=== PATIENT | female | born 1985 | race Caucasian/White ===

== ENCOUNTER 2018-08-18 07:28 | Inpatient (IN) ==
[2018-08-18] MEDS ORDERED: LACTATED RINGER'S 1,000 ML IV PRN (08:09)
[2018-08-18] MEDS ORDERED: OXYTOCIN 30 UNITS/500 ML BAG IV PRN (08:09)
[2018-08-18 08:41] LABS: Hematocrit (blood only) 35.3 % (37-47); Hemoglobin 12.3 g/dL (12.0-16.0); Mean Platelet Volume 10.5 fL (7.4-10.4); Platelet Count 176 K/uL (130-400); RDW Coefficient of Variation 13.9 % (11.5-14.5); RDW Standard Deviation 45.3 fL (36.4-46.3); Red Blood Count 3.88 M/uL (4.2-5.4); White Blood Count 9.32 K/uL (4.8-10.8)
[2018-08-18 08:45] LABS: Mean Corpuscular Hgb Conc 34.8 g/dL (32-36)
--- NOTE | 2018-08-18 08:57 | Obstetrical Progress Note ---
Date of Service August 18, 2018 Subjective Admit Note 32 F P0000 at 40.6 weeks admitted for post dates induction. FHT Cat 1. GBS is negative. Cervix is fingertip/thick/-3/vertex/intact/posterior/firm. Will plan for Cervidil for cervical ripening. Physical Exam Vital Signs (Past 24 Hours): Last Vital Signs Temp 36.4 C L 08/18/18 08:00 Pulse 94 H 08/18/18 08:33 Resp 20 08/18/18 08:00 BP 163/89 H 08/18/18 08:33
[2018-08-18] MEDS ORDERED: DINOPROSTONE 10 MG INSERT PV ONE ×2 (09:15→21:52)
--- NOTE | 2018-08-18 09:37 | Obstetrical Progress Note ---
Date of Service August 18, 2018 Physical Exam Vital Signs (Past 24 Hours): Last Vital Signs Temp 36.4 C L 08/18/18 08:00 Pulse 94 H 08/18/18 08:33 Resp 20 08/18/18 08:00 BP 163/89 H 08/18/18 08:33 Physical Exam: Cervidil 10 mg placed vaginally. T Cat 1.
--- NOTE | 2018-08-18 21:55 | Obstetrical Progress Note ---
Date of Service August 18, 2018 Physical Exam Vital Signs (Past 24 Hours): Last Vital Signs Cervidil removed Cervix fingertip/60/-3 FHt Cat 1 Will allow to eat and shower plan another Cervidil Temp 36.6 C 08/18/18 19:05 Pulse 98 H 08/18/18 21:14 Resp 20 08/18/18 19:05 BP 148/97 H 08/18/18 21:14
--- NOTE | 2018-08-18 23:49 | Obstetrical Progress Note ---
Date of Service August 18, 2018 Physical Exam Vital Signs (Past 24 Hours): Last Vital Signs Temp 36.6 C 08/18/18 19:05 Pulse 92 H 08/18/18 23:42 Resp 20 08/18/18 19:05 BP 138/86 08/18/18 23:42 Physical Exam: Cervidil 10 mg placed vaginally. T Cat 1.
--- NOTE | 2018-08-19 09:03 | Progress Note ---
Date of Service August 19, 2018 Pt doing well Met pt and family Induction Day #2 Cervidil #2 placed Physical Exam Vital Signs (Past 24 Hours): Last Vital Signs Temp 36.8 C 08/19/18 07:11 Pulse 104 H 08/19/18 07:10 Resp 20 08/19/18 07:11 BP 149/88 H 08/19/18 07:10
[2018-08-19] MEDS ORDERED: LACTATED RINGER'S 1,000 ML IV PRN (12:25)
[2018-08-19] MEDS ORDERED: OXYTOCIN 30 UNITS/500 ML BAG IV PRN (12:25)
--- NOTE | 2018-08-19 12:28 | Progress Note ---
Date of Service August 19, 2018 Pt doing well induction for prolonged gestation Bedside sono ; VT FHR CAT1 Ctx 3-4mins received 2 doses of Cervidil VE; ft/50/-3 will start pitocin augmentation Physical Exam Vital Signs (Past 24 Hours): Last Vital Signs Temp 36.6 C 08/19/18 10:43 Pulse 96 H 08/19/18 10:46 Resp 18 08/19/18 10:43 BP 155/94 H 08/19/18 10:46
[2018-08-19] MEDS: LACTATED RINGER'S 1,000 ML IV SCH ×5 (13:42→21:28)
[2018-08-19 16:25] LABS: Albumin Level 2.5 gm/dl (3.4-5.0); BUN Creatinine Ratio 18.5 (10-20); Calcium 9.2 mg/dl (8.5-10.1); Creatinine Clr Calc Pharmacy 144.9 ml/min; Est GFR (African American) 134.8; Est GFR (Non-African American) 116.3; Potassium 3.6 mmol/L (3.5-5.1)
[2018-08-19 16:28] LABS: Albumin Globulin Ratio 0.7 (0.9-2); Bilirubin,Total 0.2 mg/dl (0.2-1); Globulin 3.8 gm/dl (2.5-4.0); Total Protein 6.3 gm/dl (6.4-8.2)
[2018-08-20] MEDS: LACTATED RINGER'S 1,000 ML IV SCH (05:59)
[2018-08-20] MEDS ORDERED: miSOPROStol 50 MCG TAB PO ONE ×3 (09:29→22:47)
--- NOTE | 2018-08-20 09:33 | Obstetrical Progress Note ---
Date of Service August 20, 2018 Subjective doing well Will stop Oxytocin and give patient opportunity to shower and ambulate Will continue induction with Cytotec 50 mcg orally Physical Exam Vital Signs (Past 24 Hours): Last Vital Signs Temp 36.8 C 08/20/18 04:53 Pulse 92 H 08/20/18 08:04 Resp 18 08/20/18 06:43 BP 133/89 08/20/18 08:04
[2018-08-20] MEDS ORDERED: miSOPROStol 50 MCG TAB ONE (12:40)
--- NOTE | 2018-08-20 22:44 | Obstetrical Progress Note ---
Date of Service August 20, 2018 Physical Exam Vital Signs (Past 24 Hours): Last Vital Signs Temp 36.6 C 08/20/18 19:21 Pulse 89 08/20/18 20:58 Resp 20 08/20/18 19:21 BP 160/90 H 08/20/18 20:58 Physical Exam: Monson wih 30 ml. saline inserted into cervix. T Cat 1. cytotec every 4 hours. Cervix remains /.
[2018-08-21] MEDS ORDERED: miSOPROStol 50 MCG TAB PO STA (03:36)
[2018-08-21] MEDS ORDERED: BUTORPHANOL TARTRATE 1 MG/ML VIAL IV PRN (03:38)
[2018-08-21] MEDS ORDERED: LACTATED RINGER'S 1,000 ML IV PRN ×2 (10:25→22:54)
--- NOTE | 2018-08-21 10:27 | Obstetrical Progress Note ---
Date of Service August 21, 2018 Physical Exam Vital Signs (Past 24 Hours): Last Vital Signs Temp 36.7 C 08/21/18 07:05 Pulse 98 H 08/21/18 09:54 Resp 20 08/21/18 07:05 BP 132/86 08/21/18 09:54 Genitourinary: OB Exam Abdomen: + vertex, + posterior and + estimated weight (8.5 lbs.) Manual OB Exam: + cervical dilation 1 cm and 2 cm, + cervical effacement 50% and + station high OB Exam Monitor Tracing: + external FHT monitor used and + category I Monson fell out will start Oxytocin to augment contractions
[2018-08-21] MEDS: LACTATED RINGER'S 1,000 ML IV SCH ×3 (10:50→23:01)
[2018-08-21] MEDS: OXYTOCIN 30 UNITS/500 ML BAG IV PRN (10:54)
[2018-08-21] MEDS ORDERED: OXYTOCIN 30 UNITS/500 ML BAG IV PRN (16:01)
[2018-08-21] MEDS ORDERED: Nursing to Pharmacy Communication ONE (16:59)
--- NOTE | 2018-08-21 19:49 | Obstetrical Progress Note ---
Date of Service August 21, 2018 Physical Exam Vital Signs (Past 24 Hours): Last Vital Signs Temp 36.5 C 08/21/18 16:26 Pulse 78 08/21/18 19:17 Resp 20 08/21/18 16:26 BP 165/91 H 08/21/18 19:17 Genitourinary: OB Exam Abdomen: + heart tones and + vertex Manual OB Exam: + cervical dilation 3 cm and 4 cm, + cervical effacement 80%, + station high and + amniotic fluid clear OB Exam Monitor Tracing: + external FHT monitor used, + external uterine monitor used, + category I and + normal FHT variability AROM clear fluid
[2018-08-21] MEDS ORDERED: ACETAMINOPHEN 500 MG TAB PO PRN (20:01)
[2018-08-21] MEDS ORDERED: ACETAMINOPHEN 500 MG TAB ONE (20:24)
[2018-08-21] MEDS ORDERED: BUPIVACAINE 0.25% 30 ML VIAL ONE (21:49)
[2018-08-21] MEDS ORDERED: fentaNYL 2MCG/ML ROPIV 1.25MG/ML 100 ML BAG EPI ONE (21:50)
[2018-08-21] MEDS ORDERED: fentaNYL citrate 100 MCG/2 ML VIAL ONE (21:50)
[2018-08-21] MEDS ORDERED: ePHEDrine sulfate 50 MG/ML AMP ONE (21:50)
--- NOTE | 2018-08-21 22:31 | Anesthesiology Consultation ---
Date of Service August 21, 2018 SpO2 Assessment & Plan (1) Encounter for pre-operative examination: Chart Review Chart Review: Patient NOT seen in Pre Admission Testing and Acceptable Risk for Labor Epidural Consults Requested none ASA ASA2 Proposed Anesthesia Anesthesia Type: Labor Epidural and CSE Risk / Benefits Reviewed With: PT / POA / Parent / Guardian, Accepts Plan and Informed Consent Obtained NPO Date Last Intake of Fluids: 08/21/18 Time Last Intake of Fluids: 22:15 Date Last Intake of Solids: 08/21/18 Time Last Intake of Solids: 08:30 History Height/Weight Height: 5 ft 5 in Weight: 109.769 kg Allergies Allergy/AdvReac Type Severity Reaction Status Date / Time house dust mite Allergy Congested Verified 05/04/18 19:56 Medications Home Medications Medication Instructions Recorded Confirmed Last Taken ferrous sulfate [iron] 325 mg PO DAILY 08/18/18 08/18/18 08/17/18 08:00 folic acid 0.4 mg PO DAILY 08/18/18 08/18/18 08/17/18 08:00 vit-iron fum-folic ac 1 tab PO DAILY 08/18/18 08/18/18 08/17/18 08:00 [ Vitamin] Active Medications Generic Name Dose Route Start Last Admin Trade Name Freq PRN Reason Stop Dose Admin Acetaminophen 500 mg 08/21/18 20:01 08/21/18 20:25 Tylenol PO 09/20/18 20:00 500 mg Q4H PRN Administration Headache or Pain Oxytocin 30 units in 500 mls @ 18 mls/hr 08/21/18 10:25 08/21/18 20:45 Pitocin IV 09/20/18 10:24 1.08 units/hr .Q24H PRN 18 mls/hr Labor Induction/Augmentation Titration Protocol 1.08 UNITS/HR Lactated Ringer's 1,000 mls @ 125 mls/hr 08/21/18 11:15 08/21/18 21:50 Lr IV 09/20/18 11:14 999 mls/hr .Q8H ALCIDES Infusion Past Medical History Medical History Gestational diabetes mellitus (GDM) Borderline diet controlled No known health problems Past Surgical History Surgical History H/O wisdom tooth extraction Past Anesthesia History No Hx of Anesthesia Complications and No Family Hx of Anesthesia Complications History of PONV No Motion Sickness Screening History of Motion Sickness: No Social History Smoking Status: Never smoker Hx Alcohol Use: No Hx Substance Use: No substance use type: does not use Exercise / Class Metabolic Activity II 4-5 Yardwork/Stairs/Walk up hill Review of Systems no chest pain or sob Physical Exam Vital Signs Last Vital Signs Temp 36.6 C 08/21/18 21:12 Pulse 102 H 08/21/18 22:30 Resp 20 08/21/18 21:12 BP 174/105 H 08/21/18 22:11 Pulse Ox 100 08/21/18 22:30 ENMT Mouth: no TMJ abnormality Thyromental Distance: > or= 3.5 Finger Breadths Mallampati Class: II Neck normal visual inspection Respiratory normal respiratory effort Auscultation: lungs clear to auscultation bilaterally Cardiovascular Rate/Rhythm: regular rate and regular rhythm Musculoskeletal Spine: normal cervical ROM Neurologic moves all extremities Psychiatric Orientation: alert and oriented x 3 Testing Laboratory Results 08/18/18 08:20 08/19/18 15:56
[2018-08-21] MEDS ORDERED: DiphenhydrAMINE HCL 50 MG/ML VIAL IV PRN (22:54)
[2018-08-21] MEDS ORDERED: fentaNYL 2MCG/ML ROPIV 1.25MG/ML 100 ML BAG EPI PRN (22:54)
[2018-08-21] MEDS ORDERED: ONDANSETRON INJ 2 MG/ML 2 ML VIAL IV PRN (22:54)
[2018-08-21] MEDS ORDERED: ePHEDrine sulfate 50 MG/ML AMP IV PRN (22:54)
[2018-08-21] MEDS ORDERED: NALOXONE HCL 1 MG in SODIUM CHLORIDE 0.9% 1000ML 1,000 ML IV PRN (22:54)
[2018-08-21] MEDS ORDERED: NALBUPHINE HCL INJ 10 MG/ML AMP IV PRN (22:54)
[2018-08-21] MEDS ORDERED: NALOXONE HCL 0.4 MG/1 ML VIAL/CARP IV PRN (22:54)
[2018-08-22] MEDS ORDERED: Nursing to Pharmacy Communication ONE (03:53)
[2018-08-22] MEDS ORDERED: fentaNYL citrate 100 MCG/2 ML VIAL ONE ×2 (04:27→17:57)
[2018-08-22] MEDS ORDERED: fentaNYL citrate 100 MCG/2 ML VIAL INT SPINAL STA (04:28)
[2018-08-22] MEDS ORDERED: BUPIVACAINE 0.25% 30 ML VIAL ONE ×2 (04:30→17:57)
[2018-08-22] MEDS: fentaNYL 2MCG/ML ROPIV 1.25MG/ML 100 ML BAG EPI PRN ×6 (04:54→19:05)
[2018-08-22] MEDS: LACTATED RINGER'S 1,000 ML IV SCH ×3 (07:01→23:15)
--- NOTE | 2018-08-22 08:42 | Progress Note ---
Date of Service August 22, 2018 pt signed out to me by Dr Crow Met pt and family reviewed care with Nurse AROM FHR; CAT1 Ctx 1-3 Pit; 20 VE by Nurse : 8/100/-1 Afebrile Plan continue with augmentation Physical Exam Vital Signs (Past 24 Hours): Last Vital Signs Temp 37.1 C 08/22/18 08:28 Pulse 99 H 08/22/18 08:37 Resp 20 08/22/18 08:28 BP 144/81 H 08/22/18 08:37 Pulse Ox 98 08/22/18 08:35
[2018-08-22] MEDS ORDERED: OXYTOCIN 30 UNITS/500 ML BAG IV PRN (13:39)
--- NOTE | 2018-08-22 13:43 | Progress Note ---
Date of Service August 22, 2018 Pt doing well Nurse reports she is 9cm ctx have spaced out at 20MU of pt FHR CAT1 Plan Increase Pitocin Physical Exam Vital Signs (Past 24 Hours): Last Vital Signs Temp 37.4 C 08/22/18 11:00 Pulse 131 H 08/22/18 13:40 Resp 18 08/22/18 12:00 BP 156/75 H 08/22/18 13:36 Pulse Ox 99 08/22/18 13:40
[2018-08-22] MEDS: OXYTOCIN 30 UNITS/500 ML BAG IV PRN (17:45)
--- NOTE | 2018-08-22 18:32 | Progress Note ---
Date of Service August 22, 2018 Doing well Afebrile Pt received another bolus of epidural Pain is starting to improved last VE by Nurse showed 9.5cm/0 station X 5 hrs On Pitocin Ctx Will examine pt once pain is much improved Physical Exam Vital Signs (Past 24 Hours): Last Vital Signs Temp 36.8 C 08/22/18 14:36 Pulse 98 H 08/22/18 18:25 Resp 20 08/22/18 14:36 BP 134/68 08/22/18 18:21 Pulse Ox 97 08/22/18 18:25
[2018-08-22] MEDS ORDERED: fentaNYL citrate 100 MCG/2 ML VIAL INJ STA (18:33)
--- NOTE | 2018-08-22 20:19 | Progress Note ---
Date of Service August 22, 2018 Pt fully dilated 0 station starting to push Physical Exam Vital Signs (Past 24 Hours): Last Vital Signs Temp 36.8 C 08/22/18 19:08 Pulse 125 H 08/22/18 20:15 Resp 20 08/22/18 19:08 BP 169/80 H 08/22/18 19:53 Pulse Ox 99 08/22/18 20:15
[2018-08-23] MEDS ORDERED: ePHEDrine sulfate 50 MG/ML AMP ONE (00:13)
[2018-08-23] MEDS ORDERED: fentaNYL citrate 100 MCG/2 ML VIAL ONE (00:22)
[2018-08-23] MEDS ORDERED: PHENYLEPHRINE HCL 10 MG/ML VIAL ONE (00:32)
[2018-08-23] MEDS ORDERED: CARBOPROST TROMETHAMINE 250 MCG/ML AMPUL ONE ×2 (00:36→00:37)
[2018-08-23] MEDS ORDERED: METHYLERGONOVINE MALEATE 0.2 MG/ML AMP ONE (00:38)
[2018-08-23] MEDS ORDERED: fentaNYL citrate 100 MCG/2 ML VIAL IV STA (01:02)
--- NOTE | 2018-08-23 02:04 | Anesthesiology Consultation ---
Date of Service August 23, 2018 Assessment & Plan Chart Review Chart Review: Acceptable Risk for Surgery and Patient seen in Pre Admission Testing Consults Requested none ASA ASA2E Proposed Anesthesia Anesthesia Type: Other (Epidural) Risk / Benefits Reviewed With: PT / POA / Parent / Guardian, Accepts Plan and Informed Consent Obtained NPO Date Last Intake of Fluids: 08/21/18 Time Last Intake of Fluids: 22:15 Date Last Intake of Solids: 08/21/18 Time Last Intake of Solids: 08:30 History Surgery Operation Date: 08/23/18 01:15 Proposed Procedures p Dilatation and Evacuation - Eduard Healy MD Height/Weight Height: 5 ft 5 in Weight: 109.769 kg Allergies Allergy/AdvReac Type Severity Reaction Status Date / Time house dust mite Allergy Congested Verified 05/04/18 19:56 Medications Home Medications Medication Instructions Recorded Confirmed Last Taken ferrous sulfate [iron] 325 mg PO DAILY 08/18/18 08/18/18 08/17/18 08:00 folic acid 0.4 mg PO DAILY 08/18/18 08/18/18 08/17/18 08:00 vit-iron fum-folic ac 1 tab PO DAILY 08/18/18 08/18/18 08/17/18 08:00 [ Vitamin] Active Medications Generic Name Dose Route Start Last Admin Trade Name Doretha PRN Reason Stop Dose Admin Acetaminophen 500 mg 08/21/18 20:01 08/21/18 20:25 Tylenol PO 09/20/18 20:00 500 mg Q4H PRN Administration Headache or Pain Oxytocin 30 units in 500 mls @ 28 mls/hr 08/21/18 10:25 08/22/18 19:44 Pitocin IV 09/20/18 10:24 1.68 units/hr .[id number] PRN 28 mls/hr Labor Induction/Augmentation Titration Protocol 1.68 UNITS/HR Lactated Ringer's 1,000 mls @ 125 mls/hr 08/21/18 11:15 08/22/18 23:15 Lr IV 09/20/18 11:14 125 mls/hr .Q8H ALCIDES Administration Ropivacaine 100 ml 08/22/18 04:41 08/22/18 19:05 Epidural (L&D) EPI 08/23/18 04:40 16 ml PRN PRN Administration Pain R/T Labor Protocol Past Medical History Medical History Gestational diabetes mellitus (GDM) Borderline diet controlled No known health problems Past Family History Family History Other No known health problems Past Surgical History Surgical History H/O wisdom tooth extraction Past Anesthesia History No Hx of Anesthesia Complications History of PONV No Motion Sickness Screening History of Motion Sickness: No Social History Smoking Status: Never smoker Hx Alcohol Use: No Hx Substance Use: No substance use type: does not use Exercise / Class Metabolic Activity II 4-5 Yardwork/Stairs/Walk up hill Physical Exam Vital Signs Last Vital Signs Temp 36.6 C 08/23/18 00:02 Pulse 137 H 08/23/18 01:25 Resp 18 08/23/18 00:02 BP 104/51 L 08/23/18 01:25 Pulse Ox 100 08/23/18 01:25 Constitutional not obese (Gravid uterus) ENMT Mouth: no TMJ abnormality and oral opening not small Thyromental Distance: > or= 3.5 Finger Breadths Mallampati Class: II Neck normal visual inspection; neck extension not limited Respiratory normal respiratory effort Auscultation: lungs clear to auscultation bilaterally Cardiovascular Rate/Rhythm: regular rate and regular rhythm Heart Sounds: no murmur Psychiatric A+Ox3, euthymic affect Orientation: alert and oriented x 3 Testing Laboratory Results 08/18/18 08:20 08/19/18 15:56
[2018-08-23] MEDS ORDERED: ePHEDrine sulfate 50 MG/ML AMP IV PRN (02:18)
[2018-08-23] MEDS ORDERED: ATROPINE SULFATE 0.1 MG/ML 10ML SYR IV PRN (02:18)
[2018-08-23] MEDS ORDERED: ONDANSETRON INJ 2 MG/ML 2 ML VIAL IV PRN (02:18)
[2018-08-23] MEDS ORDERED: fentaNYL citrate 100 MCG/2 ML VIAL IV PRN (02:18)
[2018-08-23] MEDS ORDERED: METHYLERGONOVINE MALEATE 0.2 MG/ML AMP IM ONE (02:36)
[2018-08-23] MEDS ORDERED: miSOPROStol 200 MCG TAB PR ONE (02:36)
[2018-08-23] MEDS ORDERED: ACETAMINOPHEN W/CODEINE #3 1 TAB PO PRN (02:36)
[2018-08-23] MEDS ORDERED: OXYTOCIN 30 UNITS/500 ML BAG IV PRN (02:36)
[2018-08-23] MEDS ORDERED: HYDROCORTISONE ACETATE 25 MG SUPP PR PRN (02:36)
[2018-08-23] MEDS ORDERED: BENZOCAINE 20% AER SPR 82.5 GM CAN EXT PRN (02:36)
[2018-08-23] MEDS ORDERED: DIPHTHERIA/TETANUS/PERTUSSIS 0.5 ML SYR/VIAL IM ONE (02:36)
[2018-08-23] MEDS ORDERED: SUPERCREAM 0.870% 15 GM JAR EXT PRN (02:36)
[2018-08-23] MEDS ORDERED: CARBOPROST TROMETHAMINE 250 MCG/ML AMPUL IM ONE (02:36)
[2018-08-23] MEDS ORDERED: BISACODYL 10 MG SUPP PR PRN (02:36)
[2018-08-23] MEDS ORDERED: OXYCODONE/ACETAMINOPHEN 5mg/325mg TAB PO PRN (02:36)
[2018-08-23] MEDS ORDERED: ACETAMINOPHEN 325 MG TAB PO PRN (02:36)
--- NOTE | 2018-08-23 02:54 | Anesthesia Procedure Note ---
Date of Service August 23, 2018 Anesthesia Post Epidural Note Vital Signs Vital Signs: Temp Pulse Resp BP Pulse Ox 36.6 C 136 H 18 121/98 100 08/23/18 00:02 08/23/18 02:52 08/23/18 00:02 08/23/18 02:48 08/23/18 02:52 Pain Intensity Bilateral Lower Groin: Pain Intensity: 3 Notes Mental Status: alert / awake / arousable and participated in evaluation Nausea / Vomiting: adequately controlled Pain: adequately controlled Airway Patency, RR, SpO2: stable & adequate BP & HR: stable & adequate Hydration State: stable & adequate Neuraxial Anesthesia: was administered and sensory block is resolving Anesthetic Complications: no major complications apparent and Pt Satisfied with anesthetic care Epidural: Removed without complications and With tip intact
[2018-08-23] MEDS ORDERED: OXYTOCIN 20 UNITS in LACTATED RINGER'S 1,000 ML IV SCH (03:00)
--- NOTE | 2018-08-23 03:25 | Anesthesiology Progress Note ---
Date of Service August 23, 2018 Anesthesia Post Procedure Vital Signs Vital Signs: Temp Pulse Resp BP Pulse Ox 08/23/18 03:18 127 H 143/86 H 08/23/18 03:17 138 H 100 08/23/18 03:12 133 H 100 08/23/18 03:07 136 H 100 08/23/18 03:06 146 H 20 139/70 08/23/18 03:05 142 H 194/112 H 08/23/18 03:02 124 H 100 08/23/18 02:57 146 H 99 08/23/18 02:52 136 H 100 08/23/18 02:48 20 121/98 08/23/18 02:47 147 H 99 08/23/18 02:42 139 H 99 08/23/18 02:37 133 H 100 08/23/18 02:33 36.9 C 74 20 134/91 08/23/18 02:32 127 H 99 08/23/18 01:25 137 H 104/51 L 100 08/23/18 01:22 127 H 112/59 L 08/23/18 01:20 124 H 100 08/23/18 01:19 131 H 104/57 L 08/23/18 01:16 127 H 99/54 L 08/23/18 01:15 130 H 100 08/23/18 01:13 130 H 96/51 L 08/23/18 01:10 133 H 105/57 L 100 08/23/18 01:07 125 H 111/65 08/23/18 01:05 127 H 100 08/23/18 01:04 127 H 105/56 L 08/23/18 01:00 123 H 101/57 L 100 08/23/18 00:58 122 H 98/56 L 08/23/18 00:55 126 H 98/53 L 100 08/23/18 00:52 116 H 98/55 L 08/23/18 00:50 126 H 100 08/23/18 00:49 136 H 101/54 L 08/23/18 00:46 125 H 104/51 L 08/23/18 00:45 130 H 100 08/23/18 00:43 125 H 107/59 L 08/23/18 00:40 130 H 112/55 L 100 08/23/18 00:37 125 H 109/55 L 08/23/18 00:35 123 H 99 08/23/18 00:34 126 H 113/56 L 08/23/18 00:30 141 H 100/57 L 99 08/23/18 00:27 123 H 70/39 L 08/23/18 00:25 127 H 100 08/23/18 00:22 136 H 100/52 L 08/23/18 00:20 145 H 66 L 08/23/18 00:19 162 H 113/54 L 08/23/18 00:16 123 H 75/57 L 08/23/18 00:15 122 H 100 08/23/18 00:14 114 H 90/53 L 08/23/18 00:12 113 H 92/54 L 08/23/18 00:10 122 H 92/51 L 100 08/23/18 00:05 116 H 100 08/23/18 00:02 36.6 C 18 08/23/18 00:01 122 H 96/53 L 08/23/18 00:00 113 H 100 08/22/18 23:55 114 H 100 08/22/18 23:46 112 H 109/63 08/22/18 23:31 121 H 111/63 08/22/18 23:16 125 H 113/60 08/22/18 23:01 126 H 121/68 08/22/18 22:46 130 H 129/67 08/22/18 22:21 118 H 133/63 08/22/18 22:06 112 H 128/55 L 08/22/18 21:51 106 H 130/59 L 08/22/18 21:37 117 H 140/63 08/22/18 21:22 113 H 145/76 H 08/22/18 21:06 131 H 143/92 H 08/22/18 21:00 134 H 96 08/22/18 20:58 168 H 90 08/22/18 20:55 126 H 96 08/22/18 20:52 133 H 92 08/22/18 20:51 126 H 144/85 H 08/22/18 20:50 124 H 96 08/22/18 20:45 37.0 C 131 H 20 97 08/22/18 20:41 134 H 86 L 08/22/18 20:40 129 H 97 08/22/18 20:35 134 H 97 08/22/18 20:34 135 H 88 L 08/22/18 20:30 139 H 97 08/22/18 20:27 133 H 87 L 08/22/18 20:25 121 H 99 08/22/18 20:21 125 H 143/83 H 08/22/18 20:20 134 H 99 08/22/18 20:15 125 H 99 08/22/18 20:14 135 H 81 L 08/22/18 20:10 123 H 97 08/22/18 20:08 130 H 92 08/22/18 20:05 128 H 99 08/22/18 20:02 121 H 75 L 08/22/18 20:00 133 H 99 08/22/18 19:55 118 H 100 08/22/18 19:53 116 H 169/80 H 08/22/18 19:51 125 H 88 L 08/22/18 19:50 104 H 100 08/22/18 19:45 110 H 100 08/22/18 19:40 116 H 100 08/22/18 19:36 136 H 160/86 H 08/22/18 19:35 134 H 100 08/22/18 19:32 116 H 83 L 08/22/18 19:30 110 H 99 08/22/18 19:25 117 H 100 08/22/18 19:21 108 H 151/86 H 08/22/18 19:20 108 H 99 08/22/18 19:15 99 H 99 08/22/18 19:13 96 H 146/85 H 08/22/18 19:10 110 H 100 08/22/18 19:08 36.8 C 101 H 20 145/95 H 08/22/18 19:05 97 H 99 08/22/18 19:00 100 H 99 08/22/18 18:55 103 H 100 08/22/18 18:52 100 H 136/93 08/22/18 18:50 109 H 99 08/22/18 18:45 109 H 98 08/22/18 18:40 97 H 98 08/22/18 18:37 94 H 142/79 H 08/22/18 18:35 102 H 99 08/22/18 18:30 100 H 98 08/22/18 18:25 98 H 97 08/22/18 18:21 93 H 134/68 08/22/18 18:20 101 H 97 08/22/18 18:15 96 H 94 08/22/18 18:12 95 H 141/73 H 08/22/18 18:10 98 H 98 08/22/18 18:05 99 H 97 08/22/18 18:00 123 H 99 08/22/18 17:55 115 H 99 08/22/18 17:53 107 H 154/78 H 08/22/18 17:50 113 H 99 08/22/18 17:45 105 H 99 08/22/18 17:40 105 H 99 08/22/18 17:37 111 H 140/92 08/22/18 17:35 112 H 98 08/22/18 17:30 115 H 98 08/22/18 17:25 118 H 98 08/22/18 17:21 117 H 159/87 H 08/22/18 17:20 120 H 98 08/22/18 17:15 115 H 99 08/22/18 17:10 121 H 99 08/22/18 17:06 117 H 170/93 H 08/22/18 17:05 113 H 98 08/22/18 17:00 122 H 96 08/22/18 16:55 123 H 98 08/22/18 16:52 115 H 153/83 H 08/22/18 16:50 120 H 97 08/22/18 16:45 128 H 99 08/22/18 16:40 118 H 99 08/22/18 16:37 130 H 183/98 H 08/22/18 16:35 123 H 98 08/22/18 16:30 120 H 99 08/22/18 16:25 131 H 99 08/22/18 16:23 125 H 163/82 H 08/22/18 16:20 140 H 98 08/22/18 16:15 145 H 98 08/22/18 16:10 124 H 98 08/22/18 16:06 117 H 165/94 H 08/22/18 16:05 116 H 99 08/22/18 16:00 104 H 97 08/22/18 15:55 98 H 96 08/22/18 15:52 96 H 126/74 08/22/18 15:50 93 H 96 08/22/18 15:45 100 H 95 08/22/18 15:40 110 H 97 08/22/18 15:37 96 H 147/72 H 08/22/18 15:35 97 H 96 08/22/18 15:30 95 H 96 08/22/18 15:25 99 H 95 08/22/18 15:21 92 H 122/63 08/22/18 15:20 97 H 95 08/22/18 15:15 99 H 97 08/22/18 15:10 99 H 95 08/22/18 15:07 96 H 121/66 08/22/18 15:05 97 H 97 08/22/18 15:00 94 H 95 08/22/18 14:55 106 H 99 08/22/18 14:53 103 H 151/79 H 08/22/18 14:50 112 H 99 08/22/18 14:45 109 H 98 08/22/18 14:40 103 H 99 08/22/18 14:36 36.8 C 111 H 20 147/73 H 08/22/18 14:35 113 H 99 08/22/18 14:30 113 H 99 08/22/18 14:25 108 H 99 08/22/18 14:22 96 H 144/76 H 08/22/18 14:20 102 H 97 08/22/18 14:15 96 H 96 08/22/18 14:10 110 H 97 08/22/18 14:07 100 H 147/79 H 08/22/18 14:05 104 H 96 08/22/18 14:00 106 H 98 08/22/18 13:55 108 H 98 08/22/18 13:51 110 H 148/72 H 08/22/18 13:50 119 H 100 08/22/18 13:45 127 H 99 08/22/18 13:40 131 H 99 08/22/18 13:36 115 H 156/75 H 08/22/18 13:35 114 H 98 08/22/18 13:30 101 H 98 08/22/18 13:25 103 H 97 08/22/18 13:24 110 H 93 08/22/18 13:21 37.4 C 106 H 20 144/73 H 08/22/18 13:20 111 H 98 08/22/18 13:15 115 H 98 08/22/18 13:10 120 H 97 08/22/18 13:07 123 H 159/81 H 08/22/18 13:05 131 H 99 08/22/18 13:00 105 H 95 08/22/18 12:55 114 H 96 08/22/18 12:52 102 H 130/74 08/22/18 12:50 103 H 95 08/22/18 12:45 107 H 98 08/22/18 12:40 101 H 95 08/22/18 12:36 104 H 151/77 H 08/22/18 12:35 108 H 98 08/22/18 12:30 114 H 99 08/22/18 12:25 104 H 97 08/22/18 12:23 117 H 148/76 H 08/22/18 12:20 112 H 99 08/22/18 12:15 100 H 97 08/22/18 12:10 105 H 97 08/22/18 12:06 98 H 143/70 H 08/22/18 12:05 100 H 96 08/22/18 12:00 100 H 18 97 08/22/18 11:55 101 H 95 08/22/18 11:53 102 H 143/74 H 08/22/18 11:50 101 H 94 08/22/18 11:45 97 H 98 08/22/18 11:40 107 H 98 08/22/18 11:38 110 H 148/82 H 08/22/18 11:35 123 H 100 08/22/18 11:30 37.1 C 116 H 20 100 08/22/18 11:25 116 H 96 08/22/18 11:21 108 H 152/87 H 08/22/18 11:20 107 H 99 08/22/18 11:15 114 H 100 08/22/18 11:10 124 H 100 08/22/18 11:06 114 H 133/88 08/22/18 11:05 120 H 100 08/22/18 11:00 37.4 C 118 H 20 100 08/22/18 10:55 119 H 100 08/22/18 10:52 121 H 151/81 H 08/22/18 10:50 114 H 98 08/22/18 10:45 110 H 97 08/22/18 10:40 117 H 99 08/22/18 10:36 110 H 154/88 H 08/22/18 10:35 108 H 98 08/22/18 10:30 109 H 18 99 08/22/18 10:25 110 H 100 08/22/18 10:22 113 H 155/89 H 08/22/18 10:20 114 H 99 08/22/18 10:15 115 H 100 08/22/18 10:10 118 H 100 08/22/18 10:07 133 H 126/88 08/22/18 10:05 124 H 100 08/22/18 10:00 113 H 20 100 08/22/18 09:55 118 H 100 08/22/18 09:52 102 H 150/78 H 08/22/18 09:50 112 H 93 08/22/18 09:45 131 H 99 08/22/18 09:40 125 H 99 08/22/18 09:36 110 H 158/90 H 08/22/18 09:35 115 H 100 08/22/18 09:30 110 H 100 08/22/18 09:25 111 H 99 08/22/18 09:24 37.4 C 20 08/22/18 09:23 113 H 156/87 H 08/22/18 09:20 108 H 99 08/22/18 09:15 120 H 100 08/22/18 09:10 103 H 100 08/22/18 09:07 107 H 148/83 H 08/22/18 09:05 101 H 99 08/22/18 09:00 113 H 18 98 08/22/18 08:55 100 H 98 08/22/18 08:52 98 H 140/79 08/22/18 08:50 100 H 99 08/22/18 08:45 102 H 96 08/22/18 08:40 108 H 99 08/22/18 08:37 99 H 144/81 H 08/22/18 08:35 102 H 98 08/22/18 08:30 99 H 99 08/22/18 08:28 37.1 C 20 08/22/18 08:25 104 H 99 08/22/18 08:21 117 H 153/87 H 08/22/18 08:20 129 H 99 08/22/18 08:15 119 H 99 08/22/18 08:10 129 H 97 08/22/18 08:06 125 H 155/91 H 08/22/18 08:05 125 H 100 08/22/18 08:00 125 H 18 98 08/22/18 07:55 102 H 97 08/22/18 07:52 109 H 151/89 H 08/22/18 07:50 106 H 97 08/22/18 07:45 107 H 98 08/22/18 07:40 119 H 98 08/22/18 07:35 121 H 98 08/22/18 07:30 108 H 20 97 08/22/18 07:27 37.8 C H 112 H 20 148/89 H 08/22/18 07:25 114 H 99 08/22/18 07:20 112 H 98 08/22/18 07:15 108 H 97 08/22/18 07:12 111 H 141/84 H 08/22/18 07:10 108 H 98 08/22/18 07:05 113 H 20 100 08/22/18 07:00 118 H 99 08/22/18 06:58 111 H 144/86 H 08/22/18 06:55 107 H 97 08/22/18 06:50 121 H 97 08/22/18 06:45 103 H 98 08/22/18 06:43 108 H 152/89 H 08/22/18 06:40 103 H 98 08/22/18 06:35 105 H 98 08/22/18 06:30 116 H 100 08/22/18 06:29 99 H 147/80 H 08/22/18 06:25 104 H 99 08/22/18 06:20 116 H 100 08/22/18 06:15 113 H 100 08/22/18 06:12 121 H 152/86 H 08/22/18 06:10 116 H 100 08/22/18 06:05 105 H 100 08/22/18 06:00 104 H 18 98 08/22/18 05:59 102 H 160/91 H 08/22/18 05:55 108 H 99 08/22/18 05:50 105 H 98 08/22/18 05:45 114 H 96 08/22/18 05:44 104 H 162/92 H 08/22/18 05:40 97 H 98 08/22/18 05:35 111 H 100 08/22/18 05:30 103 H 98 08/22/18 05:28 102 H 144/86 H 08/22/18 05:25 102 H 97 08/22/18 05:20 92 H 98 08/22/18 05:15 92 H 99 08/22/18 05:12 94 H 147/87 H 08/22/18 05:10 37.2 C 122 H 18 100 08/22/18 05:05 98 H 98 08/22/18 05:00 99 H 20 99 08/22/18 04:57 105 H 149/87 H 08/22/18 04:55 99 H 137/85 99 08/22/18 04:53 88 137/76 08/22/18 04:51 94 H 136/79 08/22/18 04:50 88 95 08/22/18 04:49 88 148/82 H 08/22/18 04:47 92 H 132/79 08/22/18 04:45 92 H 146/85 H 99 08/22/18 04:43 90 140/82 08/22/18 04:41 96 H 145/82 H 08/22/18 04:40 96 H 99 08/22/18 04:39 101 H 149/80 H 08/22/18 04:37 97 H 148/82 H 08/22/18 04:35 104 H 99 08/22/18 04:34 107 H 156/91 H 08/22/18 04:30 95 H 97 08/22/18 04:25 95 H 99 08/22/18 04:20 106 H 97 08/22/18 04:18 114 H 142/86 H 08/22/18 04:15 99 H 97 08/22/18 04:10 122 H 100 08/22/18 04:05 115 H 97 08/22/18 04:03 91 H 144/88 H 08/22/18 04:00 90 96 08/22/18 03:55 92 H 98 08/22/18 03:52 37.5 C 08/22/18 03:50 97 H 168/94 H 98 08/22/18 03:45 114 H 98 08/22/18 03:40 94 H 97 08/22/18 03:35 115 H 98 08/22/18 03:33 96 H 166/95 H 08/22/18 03:30 98 H 99 08/22/18 03:25 91 H 18 99 Pain Intensity Bilateral Lower Groin: Pain Intensity: 3 Notes Mental Status: alert / awake / arousable and participated in evaluation Nausea / Vomiting: adequately controlled Pain: adequately controlled Airway Patency, RR, SpO2: stable & adequate BP & HR: stable & adequate Hydration State: stable & adequate Neuraxial Anesthesia: was administered and sensory block is resolving Anesthetic Complications: no major complications apparent
[2018-08-23] MEDS ORDERED: miSOPROStol 200 MCG TAB ONE (05:57)
[2018-08-23 07:33] LABS: Hematocrit (blood only) 21.6 % (37-47); Hemoglobin 7.8 g/dL (12.0-16.0); Mean Corpuscular Volume 88.5 fL (80-100); Platelet Count 137 K/uL (130-400); RDW Coefficient of Variation 13.8 % (11.5-14.5); RDW Standard Deviation 44.8 fL (36.4-46.3); Red Blood Count 2.44 M/uL (4.2-5.4); White Blood Count 15.81 K/uL (4.8-10.8)
[2018-08-23 07:44] LABS: Mean Corpuscular Hgb Conc 36.1 g/dL (32-36)
[2018-08-23 07:52] LABS: Albumin Level 1.8 gm/dl (3.4-5.0); BUN Creatinine Ratio 10.7 (10-20); Calcium 7.2 mg/dl (8.5-10.1); Creatinine Clr Calc Pharmacy 75.1 ml/min; Est GFR (African American) 60.9; Est GFR (Non-African American) 52.6; Potassium 3.4 mmol/L (3.5-5.1)
[2018-08-23 07:55] LABS: Albumin Globulin Ratio 0.6 (0.9-2); Bilirubin,Total 0.2 mg/dl (0.2-1); Globulin 2.9 gm/dl (2.5-4.0); Total Protein 4.7 gm/dl (6.4-8.2)
--- NOTE | 2018-08-23 08:04 | Delivery Summary ---
DATE OF OPERATION: 08/22/2018 The patient delivered a live infant in left occiput anterior presentation. There was no nuchal cord. was delivered and placed on mother's abdomen. Cord was clamped and cut. Infant's weight and Apgars in the pediatric record. Cord blood was obtained. Placenta, however, could not be spontaneously delivered. An attempt to manually remove the placenta was unsuccessful. The patient was very uncomfortable. Decision was therefore made to take the patient to the operating room. Details of that procedure is in the surgical record. Inspection of the perineum showed a second-degree midline laceration. Estimated blood loss is 500 mL. I attest to the content of the Intraoperative Record and any orders documented therein. Any exceptions are noted below. MTDD
--- NOTE | 2018-08-23 08:04 | Operative Report ---
DATE OF OPERATION: 08/23/2018 INDICATION FOR PROCEDURE: This is a 32-year-old who had a vaginal delivery. Placenta was retained. The patient is undergoing examination under anesthesia a manual removal of placenta in the operating room. PREOPERATIVE DIAGNOSES: 1. Vaginal delivery. 2. Retained placenta. POSTOPERATIVE DIAGNOSES: 1. Vaginal delivery. 2. Retained placenta. PROCEDURES: 1. Examination under anesthesia. 2. Manual removal of placenta. 3. Dilation and evacuation of retained products of conception. 4. Repair of a second-degree vaginal laceration . SURGEON: Dr. Healy. BOX ORDER PERSON: Dr. Hernandez. COMPLICATIONS: None. DRAINS: Monson catheter. FINDINGS: Placenta was removed manually under ultrasound guidance. COMPLICATIONS: None. DRAINS: None. Pathology retained placenta. ESTIMATED BLOOD LOSS: 200 mL. IV FLUIDS: 500 mL. URINE OUTPUT: 1000 mL clear urine at the end of the procedure. DESCRIPTION OF PROCEDURE: The patient was taken to the operating room where she was prepped and draped in normal sterile fashion in dorsal lithotomy position. Monson catheter was placed into the bladder. A weighted speculum was placed in the vagina. Anterior cervix was grabbed with a ring forceps. Suction curette was introduced in the uterine cavity under ultrasound guidance. Small amounts of placenta is manually removed. Manual removal of placenta was performed. Ultrasound after 1 hour removal of placenta showed normal placental tissue in the uterus cavity. Inspection of the cervix shows good hemostasis. The second-degree laceration is repaired with 2-0 Vicryl in layers. Rectal exam post-repair showed good sphincter tone. All instruments were removed from the vagina and accounted for x2. The patient is doing well in recovery. I attest to the content of the Intraoperative Record and any orders documented therein. Any exception s are noted below.
[2018-08-23 08:09] LABS: Basophils # (auto) 0.01 K/uL (0-0.2); Basophils % (auto) 0.1 %; Eosinophils # (auto) 0.02 K/uL (0-0.5); Eosinophils % (auto) 0.1 %; Immature Granulocytes % (auto) 0.6 %; Lymphocytes # (auto) 2.48 K/uL (1.2-3.4); Lymphocytes % (auto) 15.7 %; Monocytes # (auto) 0.93 K/uL (0.11-0.59); Monocytes % (auto) 5.9 %; Neutrophils # (auto) 12.27 K/uL (1.4-6.5); Neutrophils % (auto) 77.6 %
[2018-08-23] MEDS ORDERED: FERROUS SULFATE 325 MG TAB PO SCH (09:00)
[2018-08-23] MEDS: PRENATAL VITAMIN 1 TAB PO SCH (10:33)
[2018-08-23] MEDS: DOCUSATE SODIUM 100 MG CAP PO SCH ×2 (10:34→20:23)
--- NOTE | 2018-08-23 11:01 | Obstetrical Progress Note ---
Date of Service August 23, 2018 Assessment & Plan (1) normal course: PPd #1 D&E for manual removal of placenta anemia hGB; 7.8 with tachycardia discussed transfusion with pt Plan repeat hemoglobin at 13;00 and if still low, Pt will then consider transfusion Subjective Ambulation: ambulating normally Voiding: no voiding problems Passing Gas:: Yes Diet Tolerance:: regular diet Lochia:: Small Feeding Type:: breast feeding Review of Systems All systems reviewed & are unremarkable except as noted in HPI & below Physical Exam Vital Signs (Past 24 Hours) Last Vital Signs Temp 37.2 C 08/23/18 07:15 Pulse 134 H 08/23/18 09:43 Resp 18 08/23/18 07:15 BP 128/69 08/23/18 09:43 Pulse Ox 98 08/23/18 09:42 Constitutional WD/WN, vitals as above well developed and well nourished Eyes PERRL, conjunctivae normal, anicteric sclerae Neck trachea midline, no thyromegaly Respiratory normal respiratory effort, lungs clear to auscultation Auscultation: no crackles, no rales and no wheezes Cardiovascular RRR, no murmur, no edema Gastrointestinal (Abdomen) normal bowel sounds, soft, nontender, no hepatosplenomegaly Uterus is below umbilicus Musculoskeletal no cyanosis or clubbing, extremities motor strength 5/5 Skin no rashes, warm and dry Neurologic patellar DTR's 2+ bilat, sensation intact Psychiatric A+Ox3, euthymic affect Genitourinary normal external appearance
[2018-08-23] MEDS: LACTATED RINGER'S 1,000 ML IV SCH ×2 (11:30→19:22)
[2018-08-23 13:26] LABS: Hemoglobin 7.2 g/dL (12.0-16.0)
--- NOTE | 2018-08-23 14:02 | Obstetrical Progress Note ---
Date of Service August 23, 2018 Subjective Patient is seen and examined. She feels well, no complaints. She had repeat H&H this afternoon Hb 7.1 Htc: 20 Discussed the results and her HR being tachycardic since this morning, recommended blood transfusion. Discussed the risks of blood transfusion in details with her and her She refused blood transfusion. Given her the consent form to review She states she ambulated and took shower this morning without dizziness Voiding without difficulty Tolerating regular diet with out N&V Bleeding is minimal No fever/ chills/ CP/ SOB/palpitations/ N&V/ Leg pain Breast feeding without problems Vital Signs Temp Pulse Pulse Resp BP BP Pulse Ox 08/23/18 13:50 37.4 C 107 H 28 H 126/79 99 08/23/18 12:32 37.1 C 115 H 18 131/90 98 08/23/18 10:10 37.2 C 123 H 18 126/78 98 08/23/18 09:43 134 H 128/69 08/23/18 09:42 134 H 98 08/23/18 09:37 138 H 98 08/23/18 09:32 129 H 98 08/23/18 09:27 138 H 98 08/23/18 09:22 134 H 98 08/23/18 09:17 136 H 98 08/23/18 09:12 129 H 97 08/23/18 09:07 142 H 97 08/23/18 09:02 144 H 97 08/23/18 08:57 142 H 98 08/23/18 08:52 136 H 97 08/23/18 08:47 139 H 97 08/23/18 08:42 150 H 99 08/23/18 08:37 126 H 97 08/23/18 08:32 119 H 95 08/23/18 08:30 127 H 93 08/23/18 08:27 131 H 98 08/23/18 08:22 123 H 93 08/23/18 08:17 124 H 96 08/23/18 08:12 121 H 96 08/23/18 08:07 118 H 95 08/23/18 08:06 121 H 93 08/23/18 08:02 123 H 95 08/23/18 08:00 122 H 92 08/23/18 07:57 119 H 95 08/23/18 07:55 120 H 94 08/23/18 07:52 114 H 95 08/23/18 07:47 116 H 96 08/23/18 07:46 114 H 94 08/23/18 07:42 112 H 96 08/23/18 07:37 119 H 99 08/23/18 07:36 122 H 130/75 08/23/18 07:32 128 H 100 08/23/18 07:27 126 H 99 08/23/18 07:22 135 H 97 08/23/18 07:18 120 H 94 08/23/18 07:17 118 H 96 08/23/18 07:15 37.2 C 122 H 18 130/75 99 08/23/18 07:13 117 H 94 08/23/18 07:12 119 H 95 08/23/18 07:07 121 H 96 08/23/18 07:05 121 H 94 08/23/18 07:02 118 H 96 08/23/18 06:57 117 H 96 08/23/18 06:52 115 H 96 08/23/18 06:47 115 H 96 08/23/18 06:42 110 H 97 08/23/18 06:37 109 H 99 08/23/18 06:32 122 H 99 08/23/18 06:27 111 H 98 08/23/18 06:22 118 H 99 08/23/18 06:17 125 H 99 08/23/18 06:12 123 H 98 08/23/18 06:07 134 H 98 08/23/18 06:02 128 H 98 08/23/18 05:57 119 H 98 08/23/18 05:52 140 H 98 08/23/18 05:47 138 H 97 08/23/18 05:42 135 H 97 08/23/18 05:37 134 H 97 08/23/18 05:34 122 H 94 08/23/18 05:32 123 H 96 08/23/18 05:29 122 H 94 08/23/18 05:27 120 H 95 08/23/18 05:23 118 H 94 08/23/18 05:22 119 H 96 08/23/18 05:17 115 H 95 08/23/18 05:12 124 H 95 08/23/18 05:08 121 H 94 08/23/18 05:07 119 H 95 08/23/18 05:03 116 H 94 08/23/18 05:02 119 H 95 08/23/18 04:58 119 H 94 08/23/18 04:57 116 H 94 08/23/18 04:52 114 H 94 08/23/18 04:47 124 H 96 08/23/18 04:42 124 H 98 08/23/18 04:37 120 H 98 08/23/18 04:33 37.5 C 122 H 18 144/82 H 08/23/18 04:32 120 H 96 08/23/18 04:27 127 H 97 08/23/18 04:22 124 H 98 08/23/18 04:19 146 H 132/86 08/23/18 04:17 139 H 99 08/23/18 04:12 127 H 100 08/23/18 04:07 120 H 98 08/23/18 04:03 121 H 18 145/82 H 08/23/18 04:02 111 H 94 08/23/18 04:01 116 H 91 08/23/18 03:57 124 H 94 08/23/18 03:52 122 H 100 08/23/18 03:48 122 H 162/91 H 08/23/18 03:47 122 H 99 08/23/18 03:42 126 H 99 08/23/18 03:37 131 H 100 08/23/18 03:34 129 H 18 145/97 H 08/23/18 03:32 129 H 100 08/23/18 03:27 127 H 100 08/23/18 03:22 125 H 98 08/23/18 03:18 127 H 20 143/86 H 08/23/18 03:17 138 H 100 08/23/18 03:12 133 H 100 08/23/18 03:07 136 H 100 08/23/18 03:06 146 H 20 139/70 08/23/18 03:05 142 H 194/112 H 08/23/18 03:02 124 H 100 08/23/18 02:57 146 H 99 08/23/18 02:52 136 H 100 08/23/18 02:48 20 121/98 08/23/18 02:47 147 H 99 08/23/18 02:42 139 H 99 08/23/18 02:37 133 H 100 08/23/18 02:33 36.9 C 74 20 134/91 08/23/18 02:32 127 H 99 We did another set of vitals now BP 129/79 Pulse ox 100%, pulse at 106-107 PE: General: Alert, orientedx3, NAD, seems pale, tired ( not lseeping for the last 4 days ) CVS S1S2 RR, tachycardic Lungs; CTAB Abd: soft, NT, fundus firm, below Umbilicus Perineum intact, Lochia rubra minimal Ext; NT, no edema AP: 32 yo s/p , Manual removal of placenta in OR, ppd# 0 Anemic with Hb of 7.1, Htc: 20 VSS except tachycardia, got better since this morning, now low 100's, Afebrile doing well clincally Recommended blood transfusion but she declined She likes to iron therapy and repeat in am Recommended to report dizziness/ light headedness this afternoon Continue routine care, monitor closely All questions were answered Physical Exam Vital Signs (Past 24 Hours): Last Vital Signs Temp 37.1 C 08/23/18 12:32 Pulse 115 H 08/23/18 12:32 Resp 18 08/23/18 12:32 BP 131/90 08/23/18 12:32 Pulse Ox 98 08/23/18 12:32
--- NOTE | 2018-08-23 14:47 | Anesthesiology Progress Note ---
Date of Service August 23, 2018 Anesthesia Post Procedure Vital Signs Vital Signs: Temp Pulse Pulse Resp BP BP Pulse Ox 08/23/18 13:50 99.3 F 107 H 28 H 126/79 99 08/23/18 12:32 98.8 F 115 H 18 131/90 98 08/23/18 10:10 99.0 F 123 H 18 126/78 98 08/23/18 09:43 134 H 128/69 08/23/18 09:42 134 H 98 08/23/18 09:37 138 H 98 08/23/18 09:32 129 H 98 08/23/18 09:27 138 H 98 08/23/18 09:22 134 H 98 08/23/18 09:17 136 H 98 08/23/18 09:12 129 H 97 08/23/18 09:07 142 H 97 08/23/18 09:02 144 H 97 08/23/18 08:57 142 H 98 08/23/18 08:52 136 H 97 08/23/18 08:47 139 H 97 08/23/18 08:42 150 H 99 08/23/18 08:37 126 H 97 08/23/18 08:32 119 H 95 08/23/18 08:30 127 H 93 08/23/18 08:27 131 H 98 08/23/18 08:22 123 H 93 08/23/18 08:17 124 H 96 08/23/18 08:12 121 H 96 08/23/18 08:07 118 H 95 08/23/18 08:06 121 H 93 08/23/18 08:02 123 H 95 08/23/18 08:00 122 H 92 08/23/18 07:57 119 H 95 08/23/18 07:55 120 H 94 08/23/18 07:52 114 H 95 08/23/18 07:47 116 H 96 08/23/18 07:46 114 H 94 08/23/18 07:42 112 H 96 08/23/18 07:37 119 H 99 08/23/18 07:36 122 H 130/75 08/23/18 07:32 128 H 100 08/23/18 07:27 126 H 99 08/23/18 07:22 135 H 97 08/23/18 07:18 120 H 94 08/23/18 07:17 118 H 96 08/23/18 07:15 99.0 F 122 H 18 130/75 99 08/23/18 07:13 117 H 94 08/23/18 07:12 119 H 95 08/23/18 07:07 121 H 96 08/23/18 07:05 121 H 94 08/23/18 07:02 118 H 96 08/23/18 06:57 117 H 96 08/23/18 06:52 115 H 96 08/23/18 06:47 115 H 96 08/23/18 06:42 110 H 97 08/23/18 06:37 109 H 99 08/23/18 06:32 122 H 99 08/23/18 06:27 111 H 98 08/23/18 06:22 118 H 99 08/23/18 06:17 125 H 99 08/23/18 06:12 123 H 98 08/23/18 06:07 134 H 98 08/23/18 06:02 128 H 98 08/23/18 05:57 119 H 98 08/23/18 05:52 140 H 98 08/23/18 05:47 138 H 97 08/23/18 05:42 135 H 97 08/23/18 05:37 134 H 97 08/23/18 05:34 122 H 94 08/23/18 05:32 123 H 96 08/23/18 05:29 122 H 94 08/23/18 05:27 120 H 95 08/23/18 05:23 118 H 94 08/23/18 05:22 119 H 96 08/23/18 05:17 115 H 95 08/23/18 05:12 124 H 95 08/23/18 05:08 121 H 94 08/23/18 05:07 119 H 95 08/23/18 05:03 116 H 94 08/23/18 05:02 119 H 95 08/23/18 04:58 119 H 94 08/23/18 04:57 116 H 94 08/23/18 04:52 114 H 94 08/23/18 04:47 124 H 96 08/23/18 04:42 124 H 98 08/23/18 04:37 120 H 98 08/23/18 04:33 99.5 F 122 H 18 144/82 H 08/23/18 04:32 120 H 96 08/23/18 04:27 127 H 97 08/23/18 04:22 124 H 98 08/23/18 04:19 146 H 132/86 08/23/18 04:17 139 H 99 08/23/18 04:12 127 H 100 08/23/18 04:07 120 H 98 08/23/18 04:03 121 H 18 145/82 H 08/23/18 04:02 111 H 94 08/23/18 04:01 116 H 91 08/23/18 03:57 124 H 94 08/23/18 03:52 122 H 100 08/23/18 03:48 122 H 162/91 H 08/23/18 03:47 122 H 99 08/23/18 03:42 126 H 99 08/23/18 03:37 131 H 100 08/23/18 03:34 129 H 18 145/97 H 08/23/18 03:32 129 H 100 08/23/18 03:27 127 H 100 08/23/18 03:22 125 H 98 08/23/18 03:18 127 H 20 143/86 H 08/23/18 03:17 138 H 100 08/23/18 03:12 133 H 100 08/23/18 03:07 136 H 100 08/23/18 03:06 146 H 20 139/70 08/23/18 03:05 142 H 194/112 H 08/23/18 03:02 124 H 100 08/23/18 02:57 146 H 99 08/23/18 02:52 136 H 100 08/23/18 02:48 20 121/98 08/23/18 02:47 147 H 99 08/23/18 02:42 139 H 99 08/23/18 02:37 133 H 100 08/23/18 02:33 98.4 F 74 20 134/91 08/23/18 02:32 127 H 99 08/23/18 01:25 137 H 104/51 L 100 08/23/18 01:22 127 H 112/59 L 08/23/18 01:20 124 H 100 08/23/18 01:19 131 H 104/57 L 08/23/18 01:16 127 H 99/54 L 08/23/18 01:15 130 H 100 08/23/18 01:13 130 H 96/51 L 08/23/18 01:10 133 H 105/57 L 100 08/23/18 01:07 125 H 111/65 08/23/18 01:05 127 H 100 08/23/18 01:04 127 H 105/56 L 08/23/18 01:00 123 H 101/57 L 100 08/23/18 00:58 122 H 98/56 L 08/23/18 00:55 126 H 98/53 L 100 08/23/18 00:52 116 H 98/55 L 08/23/18 00:50 126 H 100 08/23/18 00:49 136 H 101/54 L 08/23/18 00:46 125 H 104/51 L 08/23/18 00:45 130 H 100 08/23/18 00:43 125 H 107/59 L 08/23/18 00:40 130 H 112/55 L 100 08/23/18 00:37 125 H 109/55 L 08/23/18 00:35 123 H 99 08/23/18 00:34 126 H 113/56 L 08/23/18 00:30 141 H 100/57 L 99 08/23/18 00:27 123 H 70/39 L 08/23/18 00:25 127 H 100 08/23/18 00:22 136 H 100/52 L 08/23/18 00:20 145 H 66 L 08/23/18 00:19 162 H 113/54 L 08/23/18 00:16 123 H 75/57 L 08/23/18 00:15 122 H 100 08/23/18 00:14 114 H 90/53 L 08/23/18 00:12 113 H 92/54 L 08/23/18 00:10 122 H 92/51 L 100 08/23/18 00:05 116 H 100 08/23/18 00:02 97.9 F 18 08/23/18 00:01 122 H 96/53 L 08/23/18 00:00 113 H 100 08/22/18 23:55 114 H 100 08/22/18 23:46 112 H 109/63 08/22/18 23:31 121 H 111/63 08/22/18 23:16 125 H 113/60 08/22/18 23:01 126 H 121/68 08/22/18 22:46 130 H 129/67 08/22/18 22:21 118 H 133/63 08/22/18 22:06 112 H 128/55 L 08/22/18 21:51 106 H 130/59 L 08/22/18 21:37 117 H 140/63 08/22/18 21:22 113 H 145/76 H 08/22/18 21:06 131 H 143/92 H 08/22/18 21:00 134 H 96 08/22/18 20:58 168 H 90 08/22/18 20:55 126 H 96 08/22/18 20:52 133 H 92 08/22/18 20:51 126 H 144/85 H 08/22/18 20:50 124 H 96 08/22/18 20:45 98.6 F 131 H 20 97 08/22/18 20:41 134 H 86 L 08/22/18 20:40 129 H 97 08/22/18 20:35 134 H 97 08/22/18 20:34 135 H 88 L 08/22/18 20:30 139 H 97 08/22/18 20:27 133 H 87 L 08/22/18 20:25 121 H 99 08/22/18 20:21 125 H 143/83 H 08/22/18 20:20 134 H 99 08/22/18 20:15 125 H 99 08/22/18 20:14 135 H 81 L 08/22/18 20:10 123 H 97 08/22/18 20:08 130 H 92 08/22/18 20:05 128 H 99 08/22/18 20:02 121 H 75 L 08/22/18 20:00 133 H 99 08/22/18 19:55 118 H 100 08/22/18 19:53 116 H 169/80 H 08/22/18 19:51 125 H 88 L 08/22/18 19:50 104 H 100 08/22/18 19:45 110 H 100 08/22/18 19:40 116 H 100 08/22/18 19:36 136 H 160/86 H 08/22/18 19:35 134 H 100 08/22/18 19:32 116 H 83 L 08/22/18 19:30 110 H 99 08/22/18 19:25 117 H 100 08/22/18 19:21 108 H 151/86 H 08/22/18 19:20 108 H 99 08/22/18 19:15 99 H 99 08/22/18 19:13 96 H 146/85 H 08/22/18 19:10 110 H 100 08/22/18 19:08 98.2 F 101 H 20 145/95 H 08/22/18 19:05 97 H 99 08/22/18 19:00 100 H 99 08/22/18 18:55 103 H 100 08/22/18 18:52 100 H 136/93 08/22/18 18:50 109 H 99 08/22/18 18:45 109 H 98 08/22/18 18:40 97 H 98 08/22/18 18:37 94 H 142/79 H 08/22/18 18:35 102 H 99 08/22/18 18:30 100 H 98 08/22/18 18:25 98 H 97 08/22/18 18:21 93 H 134/68 08/22/18 18:20 101 H 97 08/22/18 18:15 96 H 94 08/22/18 18:12 95 H 141/73 H 08/22/18 18:10 98 H 98 08/22/18 18:05 99 H 97 08/22/18 18:00 123 H 99 08/22/18 17:55 115 H 99 08/22/18 17:53 107 H 154/78 H 08/22/18 17:50 113 H 99 08/22/18 17:45 105 H 99 08/22/18 17:40 105 H 99 08/22/18 17:37 111 H 140/92 08/22/18 17:35 112 H 98 08/22/18 17:30 115 H 98 08/22/18 17:25 118 H 98 08/22/18 17:21 117 H 159/87 H 08/22/18 17:20 120 H 98 08/22/18 17:15 115 H 99 08/22/18 17:10 121 H 99 08/22/18 17:06 117 H 170/93 H 08/22/18 17:05 113 H 98 08/22/18 17:00 122 H 96 08/22/18 16:55 123 H 98 08/22/18 16:52 115 H 153/83 H 08/22/18 16:50 120 H 97 08/22/18 16:45 128 H 99 08/22/18 16:40 118 H 99 08/22/18 16:37 130 H 183/98 H 08/22/18 16:35 123 H 98 08/22/18 16:30 120 H 99 08/22/18 16:25 131 H 99 08/22/18 16:23 125 H 163/82 H 08/22/18 16:20 140 H 98 08/22/18 16:15 145 H 98 08/22/18 16:10 124 H 98 08/22/18 16:06 117 H 165/94 H 08/22/18 16:05 116 H 99 08/22/18 16:00 104 H 97 08/22/18 15:55 98 H 96 08/22/18 15:52 96 H 126/74 08/22/18 15:50 93 H 96 08/22/18 15:45 100 H 95 08/22/18 15:40 110 H 97 08/22/18 15:37 96 H 147/72 H 08/22/18 15:35 97 H 96 08/22/18 15:30 95 H 96 08/22/18 15:25 99 H 95 08/22/18 15:21 92 H 122/63 08/22/18 15:20 97 H 95 08/22/18 15:15 99 H 97 08/22/18 15:10 99 H 95 08/22/18 15:07 96 H 121/66 08/22/18 15:05 97 H 97 08/22/18 15:00 94 H 95 08/22/18 14:55 106 H 99 08/22/18 14:53 103 H 151/79 H 08/22/18 14:50 112 H 99 Pain Intensity Bilateral Lower Groin: Pain Intensity: 1 Notes Mental Status: alert / awake / arousable and participated in evaluation Nausea / Vomiting: adequately controlled Pain: adequately controlled Airway Patency, RR, SpO2: stable & adequate BP & HR: stable & adequate Hydration State: stable & adequate Neuraxial Anesthesia: was administered and sensory block resolved Anesthetic Complications: no major complications apparent and Pt Satisfied with anesthetic care
--- NOTE | 2018-08-23 14:59 | XRay Report ---
[facility] CLINICAL HISTORY: missing gauze pad after vaginal delivery COMPARISON STUDY: None. FINDINGS: No unexpected radiopaque foreign bodies are identified within the lower abdomen or the pelv is. A density within the lower abdomen and pelvis represents an enlarged uterus which is expected. IMPRESSION: No unexpected radiopaque foreign bodies. Electronically signed by: Uche Castillo M.D. 08/23/2018 2:58 PM
[2018-08-23] MEDS: IBUPROFEN 600 MG TAB PO PRN ×2 (16:11→20:23)
[2018-08-23] MEDS: FERROUS SULFATE 325 MG TAB PO SCH (17:03)
[2018-08-24] MEDS: IBUPROFEN 600 MG TAB PO PRN ×2 (03:53→14:30)
[2018-08-24 07:36] LABS: Hematocrit (blood only) 17.5 % (37-47); Hemoglobin 6.2 g/dL (12.0-16.0); Mean Corpuscular Hgb Conc 35.4 g/dL (32-36); Mean Corpuscular Volume 89.3 fL (80-100); Mean Platelet Volume 9.9 fL (7.4-10.4); Platelet Count 123 K/uL (130-400); RDW Coefficient of Variation 13.9 % (11.5-14.5); Red Blood Count 1.96 M/uL (4.2-5.4); White Blood Count 15.09 K/uL (4.8-10.8)
[2018-08-24] MEDS ORDERED: SODIUM CHLORIDE 0.9% 250 ML IV PRN ×3 (07:47→07:50)
--- NOTE | 2018-08-24 08:12 | Obstetrical Progress Note ---
Date of Service August 24, 2018 Subjective Patient is seen Reviewed lab results with her Hb of 6 She agreed for blood transfusion Signed informed consent All questions were answered Physical Exam Vital Signs (Past 24 Hours): Last Vital Signs Temp 36.8 C 08/24/18 03:25 Pulse 85 08/24/18 03:25 Resp 18 08/24/18 03:25 BP 127/58 L 08/24/18 03:25 Pulse Ox 98 08/24/18 03:25
[2018-08-24] MEDS: DOCUSATE SODIUM 100 MG CAP PO SCH ×2 (09:48→20:34)
[2018-08-24] MEDS: PRENATAL VITAMIN 1 TAB PO SCH (09:48)
[2018-08-24] MEDS: FERROUS SULFATE 325 MG TAB PO SCH ×2 (09:49→17:02)
--- NOTE | 2018-08-24 11:21 | Anesthesiology Progress Note ---
Date of Service August 24, 2018 Anesthesia Post Procedure Vital Signs Vital Signs: Temp Pulse Pulse Resp BP BP Pulse Ox 08/24/18 11:04 36.5 C 89 18 129/87 100 08/24/18 10:34 37.1 C 88 18 121/82 98 08/24/18 10:20 36.5 C 85 18 131/82 99 08/24/18 10:00 36.5 C 89 18 127/86 99 08/24/18 08:00 36.9 C 103 H 20 134/86 99 08/24/18 03:25 36.8 C 85 18 127/58 L 98 08/23/18 23:33 36.8 C 95 H 20 124/82 99 08/23/18 19:55 36.8 C 101 H 20 123/86 99 08/23/18 15:45 37.2 C 109 H 16 130/84 100 08/23/18 13:50 37.4 C 107 H 28 H 126/79 99 08/23/18 12:32 37.1 C 115 H 18 131/90 98 Pain Intensity Bilateral Lower Groin: Pain Intensity: 0 Bilateral Abdomen: Pain Intensity: 0 Notes Mental Status: alert / awake / arousable and participated in evaluation Patient Amnestic to Procedure: No (patient awake during procedure, epidural used.) Nausea / Vomiting: adequately controlled Pain: adequately controlled Airway Patency, RR, SpO2: stable & adequate BP & HR: stable & adequate Hydration State: stable & adequate Neuraxial Anesthesia: was administered and sensory block resolved Anesthetic Complications: no major complications apparent
[2018-08-24] MEDS: LACTATED RINGER'S 1,000 ML IV SCH (17:13)
[2018-08-24] MEDS ORDERED: BISACODYL 5 MG TABEC PO SCH (20:00)
[2018-08-24 22:09] LABS: Hematocrit (blood only) 24.3 % (37-47); Hemoglobin 8.5 g/dL (12.0-16.0)
[2018-08-25] MEDS: LACTATED RINGER'S 1,000 ML IV SCH (02:36)
[2018-08-25 08:41] LABS: Hematocrit (blood only) 20.6 % (37-47); Hemoglobin 7.3 g/dL (12.0-16.0)
[2018-08-25] MEDS: PRENATAL VITAMIN 1 TAB PO SCH (08:55)
[2018-08-25] MEDS: DOCUSATE SODIUM 100 MG CAP PO SCH (08:55)
[2018-08-25] MEDS: FERROUS SULFATE 325 MG TAB PO SCH (08:55)
--- NOTE | 2018-08-25 10:10 | Obstetrical Progress Note ---
Date of Service August 25, 2018 Subjective doing well no dizziness or light headedness ambulating and tolerating diet had several bowel movements thsi AM passing gas Review of Systems All systems reviewed & are unremarkable except as noted in HPI & below Physical Exam Vital Signs (Past 24 Hours): Last Vital Signs Temp 36.9 C 08/25/18 09:17 Pulse 88 08/25/18 09:17 Resp 18 08/25/18 09:17 BP 125/79 08/25/18 09:17 Pulse Ox 100 08/25/18 09:17 Constitutional: WD/WN, vitals as above comfortable Gastrointestinal (Abdomen): Percussion/Palpation: abdomen soft fundus firm mild 1+ edema of lower extremities Neg Kailey's will plan on discharge later today Results & Data Laboratory Results Laboratory Results - last 48 hr 08/23/18 08/23/18 08/24/18 12:59 12:59 06:42 WBC 15.09 H RBC 1.96 L Hgb 7.2 L 6.2 L* Hct 20.0 L* 17.5 L* MCV 89.3 MCH 31.6 MCHC 35.4 RDW Std Deviation 46.0 RDW Coeff of Koby 13.9 Plt Count 123 L MPV 9.9 Blood Type Blood Type Recheck O Positive Antibody Screen Crossmatch 08/24/18 08/24/18 08/25/18 08:13 21:58 06:52 WBC RBC Hgb 8.5 L 7.3 L Hct 24.3 L 20.6 L* MCV MCH MCHC RDW Std Deviation RDW Coeff of Koby Plt Count MPV Blood Type O Positive Blood Type Recheck Antibody Screen NEGATIVE Crossmatch See Detail
--- NOTE | 2018-08-26 07:22 | Discharge Summary ---
Date of Service September 20, 2018 Discharge Data Consultations 08/18/18 08:09 Consult Anesthesiology Stat Procedures Performed Operation Date: 08/23/18 01:15 Actual Procedures p Dilatation and Evacuation - Eduard Healy MD
--- NOTE | 2018-08-26 13:29 | Coding Query ---
CODING QUERY To promote full compliance with coding requirements relating to patient care, provider participation is requested in all cases of retort press operator uncertainty. Please assist us with the question(s) below: Coding Question(s): Your help is needed to accurately document the date of the of the . The Vaginal Delivery Summary Report shows a date of operation of 08/23/18, however the EMR L&D Delivery Summary records the date of delivery of the to be 08/22/18. Please clarify below. ( ) The was delivered on 08/22/18 ( ) The [place] was delivered on 08/23/18 Physician's Response(s): Thank you Ro Del Rosario Principal Diagnosis: "that condition established after study, to be chiefly responsible for occasioning the admission of the patient to the hospital for care." Co-Existing Principal Diagnosis: "when two or more diagnoses equally meet the criteria for principal diagnosis as determined by the circumstances of admission, diagnostic work up, and/or therapy provided, and the Alphabetic Index, Tabular List, or another coding guideline does not provide sequencing direction, any one of the diagnoses may be sequenced first." "When the physician has documented what appears to be a current diagnosis in the body of the record, but has not included the diagnosis in the final diagnostic statement, the physician should be asked whether the diagnosis should be added." ([facility] 2 QTR90. p3-4) TIBURCIO
--- NOTE | 2018-09-20 01:16 | Discharge Summary ---
CHIEF COMPLAINT: Post-dates induction for . HISTORY OF PRESENT ILLNESS: This is a 32-year-old G1, P0, patient's due date was 08/12/2018. She presented for post-dates induction on 08/18/2018 making her on that day 40 weeks and 6 days gestation. The patient received cervical ripening to start with induction. She received several doses of cervical ripening and Pitocin. The patient finally delivered on 08/22/2018, that is day 5. Details of her delivery is in the delivery note. After delivery, the patient experienced retained placenta. She was therefore taken to the operating room where she had manual removal of placenta with dilation and curettage under ultrasound guidance. Details of the surgery are in the surgical note as well. Postoperatively, patient did well. On postop day 1, which was 08/23/2018, the patient's hemoglobin dropped to 6.2. The patient was ordered blood transfusion and which she declined. She was observed that day and then eventually agreed to blood transfusion. She received blood transfusion on 08/24/2018. She was discharged home in stable condition on 08/25/2018. PAST MEDICAL HISTORY: 1. History of allergic rhinitis. 2. History of iron deficiency anemia. 3. Ovarian cyst. PAST SURGICAL HISTORY: History of dental procedure and upper endoscopy. ALLERGIES: No known drug allergies. SOCIAL HISTORY: The patient denies tobacco, drug or alcohol use. FAMILY HISTORY: Noncontributory. REVIEW OF SYSTEMS: Negative except as dictated under HPI. PHYSICAL EXAMINATION: GENERAL: Well-developed, well-nourished white female in no acute distress. VITAL SIGNS: On 08/25/2018 showed blood pressure 139/79, pulse is 98, respirations 16, temperature is 37.0. LABORATORY DATA: On 08/25/2018, hemoglobin was 7.3, hematocrit was 20.6. CONDITION ON DISCHARGE: Stable. OPERATIONS: 1. Vaginal delivery after 5 days of induction. 2. Retained placenta which required surgical removal. DISCHARGE DIAGNOSES: 1. Vaginal delivery. 2. Surgical removal of retained placenta. PLAN ON DISCHARGE: The patient is discharged home with instructions regarding diet, activity, followup appointments, and medications.
== END 2018-08-25 17:35 | disposition home or self-care (01) | DRG 798 ==
LOC: 4S1 07:28 → 4S2 08-23 10:58

== ENCOUNTER 2022-08-03 20:45 | Inpatient (IN) ==
[2022-08-03] MEDS ORDERED: SODIUM CHLORIDE 0.9% 250 ML IV PRN (21:48)
[2022-08-03] MEDS ORDERED: OXYTOCIN 30 UNITS/500 ML BAG IV PRN ×2 (21:48→21:51)
[2022-08-03] MEDS ORDERED: LIDOCAINE 1% LOCAL 20 ML VIAL INFIL PRN (21:48)
[2022-08-03] MEDS: CALCIUM CARBONATE 500 MG CHEWABLE TAB PO PRN (22:29)
[2022-08-03 22:46] LABS: Hematocrit (blood only) 29.2 % (37.0-47.0); Hemoglobin 10.5 g/dl (12.0-16.0); Mean Corpuscular Hemoglobin 31.9 pg (25.0-34.0); Mean Corpuscular Volume 88.8 fL (80.0-100.0); Mean Platelet Volume 10.3 fL (9.4-12.4); Platelet Count 216 K/uL (130-400); RDW Standard Deviation 45.5 fL (36.4-46.3); Red Blood Count 3.29 M/uL (4.20-5.40); White Blood Count 9.95 K/ul (4.8-10.8)
[2022-08-03 23:03] LABS: Albumin Globulin Ratio 1.1 (0.9-2); Albumin Level 3.4 gm/dl (3.4-5.0); BUN Creatinine Ratio 14.9 (10-20); Bilirubin,Total 0.3 mg/dl (0.2-1.0); Calcium 9.9 mg/dl (8.5-10.1); Creatinine Clr Calc Pharmacy 112.1 ml/min; Est GFR (African American) 100.7 ml/min; Est GFR (Non-African American) 86.9 ml/min; Potassium 3.8 mmol/L (3.5-5.1); Total Protein 6.4 gm/dl (6.0-8.3)
--- NOTE | 2022-08-03 23:12 | History & Physical Report ---
Date of Service August 03, 2022 Assessment & Plan (1) Twin : (2) Preeclampsia: (3) Arrhythmia of fetus affecting management of : Plan 36 yo at 37 4/7 wga presents for IOL for pre-eclampsia w/o SF VSS, mild range Fetus cat 1 x 2 Labor - 35cc quinonez bulb placed after verbal consent obtained, pt tolerated well. Will monitor x 1hr. Pt desires to walk a few laps before starting pit so will let ambulate for a bit before starting pit following the hour monitoring. T&C ordered Pre-eclampsia - baseline labs ordered, denies symptoms. Will monitor GBS neg Epidural PRN Admission and Anticipated Discharge Date Admission Date: August 03, 2022 History of Present Illness Chief Complaint: IOL Primary Care Provider: NO PCP 36 yo at 37 4/7 wga w/ di-di TIUP presents for IOL for pre-eclampsia w/o SF. 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 Hx: G1 SAB G2 2018 G3 2020 SAB G4 current 01/2022 neg cotest denies hx STIs Allergies Allergy/AdvReac Type Severity Reaction Status Date / Time house dust mite Allergy Unknown Congested Verified 08/03/22 21:05 Home Medications Medication Instructions Recorded Confirmed Type aspirin 81 mg chewable tablet 81 mg PO DAILY 06/30/22 08/03/22 History cholecalciferol (vitamin D3) 50 50 mcg PO DAILY 06/30/22 08/03/22 History mcg (2,000 unit) tablet (Vitamin D3) cyanocobalamin (vitamin B-12) 500 500 mcg PO DAILY 06/30/22 08/03/22 History mcg tablet (Vitamin B-12) docusate sodium 250 mg capsule 250 mg PO DAILY 06/30/22 08/03/22 History folic acid 400 mcg tablet 400 mcg PO DAILY 06/30/22 08/03/22 History prenat.vits,tamy,svy-tafo-bqcnj 1 tab PO DAILY 06/30/22 08/03/22 History pyridoxine (vitamin B6) 25 mg 25 mg PO DAILY 06/30/22 08/03/22 History tablet (Vitamin B-6) iron sucrose 100 mg iron/5 mL 300 mg (15 mL) IV ONCE 1 day #15 mL 07/03/22 08/03/22 Rx intravenous solution (Venofer) ferrous sulfate 325 mg (65 mg 325 mg PO DAILY 07/09/22 08/03/22 History iron) tablet Patient History Medical History No known health problems Surgical History (Updated 08/03/22 @ 21:04 by Jennifer Del Rosario, RN) H/O dilation and curettage 2019 retained placenta after delivery H/O wisdom tooth extraction [place] teeth extracted Family History Grandmother Diabetes Father Diabetes Grandfather (Maternal) Heart disease Aunt Breast cancer Mother Cancer Other Hodgkin lymphoma No known health problems Social History Smoking Status: Never smoker Second Hand Exposure: No; Hx Alcohol Use: No Hx Substance Use: No Preferred Language: Mongolian Communication Ability: Effective Mathematics Academic Chair Required: No Beliefs That Will Affect Care: None marital status: marital status details: Yared (39) [phone] Current Living Situation: Spouse and Family Current Living Situation Comment: lives with spouse, son, 1 dog, current occupational status: employed current occupation: [employer]. Other Information That Helps Us Care for You: No Feels Safe at Home: Yes Safety Concerns: Feels Safe At This Time Assistive Devices: Contacts and Glasses Physical Exam Genitourinary: OB Exam Abdomen: + vertex (vertex/vertex by BSUS) Manual OB Exam: + cervical dilation (1.5), + cervical effacement 50% and + station -2 OB Exam Monitor Tracing: + external FHT monitor used, + external uterine monitor used and + category I (x2) Results & Data ([facility]) Vital Signs (Past 12 Hours) Vital Signs Temp Pulse Resp BP O2 Del Method 08/03/22 21:07 98.4 F 100 H 18 156/98 H Room Air 08/03/22 23:05 98 H 08/03/22 23:05 162/97 H 08/03/22 21:15 100 H 08/03/22 21:15 156/98 H 08/03/22 20:59 98.4 F 105 H 18 169/107 H Laboratory Results OB Labs: Blood Type O Positive 02/02/22 Antibody Screen NEGATIVE 02/02/22 Hemoglobin 10.6 g/dl (12.0-16.0) L 07/27/22 Hematocrit 30.4 % (37.0-47.0) L 07/27/22 Mean Corpuscular Volume 90.2 fL (80.0-100.0) 07/27/22 Platelet Count 190 K/uL (130-400) 07/27/22 Rubella IgG Antibody Immune (Immune) 02/02/22 Rapid Plasma Reagin Nonreactive (Nonreactive) 02/02/22 Hepatitis B Surface Antigen. NON-REACTIVE (NON-REACTIVE) 02/02/22 Hepatitis C Antibody (EIA) NON-REACTIVE (NON-REACTIVE) 02/02/22 HIV (1&2) Ag and Ab Confirmation NON-REACTIVE (NON-REACTIVE) 02/02/22 Glucose 1 Hour 50 gm Load 152 mg/dl (70-130) H 03/02/22 OB Optional Labs: Chlamydia trachomatis RNA NOT DETECTED (NOT DETECTED) 01/20/22 Neisseria gonorrhoeae RNA NOT DETECTED (NOT DETECTED) 01/20/22 Thyroid Stimulating Hormone (TSH) < 0.005 uIu/ml (0.300-4.500) L 11/25/18 Labs Reviewed: Declines cf/sma/cfdna--mln GBS neg Coding Level of Care Code None Diagnoses Twin O30.009 Preeclampsia O14.90 Arrhythmia of fetus affecting management of O36.8390
[2022-08-04] MEDS: LACTATED RINGER'S 1,000 ML IV PRN ×3 (01:40→19:37)
[2022-08-04] MEDS: CALCIUM CARBONATE 500 MG CHEWABLE TAB PO PRN (02:39)
[2022-08-04] MEDS ORDERED: ePHEDrine sulfate 50 MG/ML AMP ONE ×2 (05:17→11:11)
[2022-08-04] MEDS ORDERED: LIDOCAINE 2%/EPINEPHRINE 1:200,000 20 ML SDV ONE ×2 (05:17→11:11)
[2022-08-04] MEDS ORDERED: SODIUM CHLORIDE 0.9% INJ 10 ML VIAL ONE ×2 (05:17→11:11)
[2022-08-04] MEDS ORDERED: fentaNYL citrate 100 MCG/2 ML VIAL ONE ×2 (05:17→11:11)
[2022-08-04] MEDS ORDERED: BUPIVACAINE 0.25% 30 ML VIAL ONE ×3 (05:17→11:11)
[2022-08-04] MEDS ORDERED: fentaNYL 2MCG/ML ROPIVACAINE 1.25MG/ML 100 ML BAG EPI ONE ×2 (05:18→11:12)
[2022-08-04] MEDS ORDERED: MAG SULFATE 4GM BOLUS FROM BAG IV ONE (05:25)
--- NOTE | 2022-08-04 05:31 | Labor Progress Brief Note ---
Date of Service August 04, 2022 Subjective Notified of pt's BPs - pt notes that contractions are getting more uncomfortable Assessment & Plan (1) Twin : (2) Preeclampsia: (3) Arrhythmia of fetus affecting management of : Plan 36 yo at 37 4/7 wga presents for IOL for pre-eclampsia w/o SF VSS Fetus cat 1 x 2 Labor - quinonez bulb palpated in vagina, after removed good progression noted. Continue induction Pre-eclampsia - baseline labs wnl. BPs remained mild range for a while but more recently have become persistently severe, remain severe regardless of position and in b/w contractions as well. Notes mild BA but not anything bad or need to take meds. Denies vision change, CP, SOB, RUQ pain. Given persistence of severes, meets criteria for SF and recommend magnesium. Discussed indication and reasoning for mag and pt agreeable, antihtn meds prn GBS neg Epidural desired Admission and Anticipated Discharge Date Admission Date: August 03, 2022 Physical Exam Genitourinary: Manual OB Exam: + cervical dilation 4 cm, + cervical effacement 50% and + station -2 OB Exam Monitor Tracing: + external FHT monitor used (q5-7), + external uterine monitor used and + category I (x2) Results & Data ([facility]) Vital Signs (Past 12 Hours) Vital Signs Temp Pulse Resp BP O2 Del Method 08/03/22 21:07 98.4 F 100 H 18 156/98 H Room Air 08/04/22 05:18 97 H 171/106 H 08/04/22 04:51 85 152/74 H 08/04/22 04:44 91 H 170/96 H 08/04/22 04:30 16 08/04/22 04:30 16 08/04/22 04:27 79 166/90 H 08/04/22 04:11 90 176/92 H 08/04/22 03:10 92 H 154/76 H 08/04/22 03:08 93 H 177/78 H 08/04/22 03:06 91 H 179/92 H 08/04/22 03:01 96 H 173/95 H 08/04/22 01:50 85 132/76 08/04/22 01:43 95 H 160/91 H 08/04/22 01:19 18 08/04/22 01:19 98.2 F 18 08/04/22 01:18 92 H 151/96 H 08/04/22 01:15 96 H 140/101 H 08/03/22 23:14 101 H 08/03/22 23:14 142/70 H 08/03/22 23:05 98 H 08/03/22 23:05 162/97 H 08/03/22 21:15 100 H 08/03/22 21:15 156/98 H 08/03/22 20:59 98.4 F 105 H 18 169/107 H Coding Level of Care Code None Diagnoses Twin O30.009 Preeclampsia O14.90 Arrhythmia of fetus affecting management of O36.8390
[2022-08-04] MEDS ORDERED: MAGNESIUM SULFATE 40GM / WTR 1,000 ML BAG IV ONE (05:32)
[2022-08-04] MEDS: FAMOTIDINE 20 MG TAB PO SCH ×2 (05:36→21:19)
[2022-08-04] MEDS: MAGNESIUM SULFATE / WTR 40 GM/1,000 ML BAG IV SCH (05:37)
--- NOTE | 2022-08-04 05:44 | Anesthesiology Consultation ---
Date of Service August 04, 2022 Assessment & Plan Chart Review Chart Review: Acceptable Risk for Labor Epidural Consults Requested none ASA ASA2 Proposed Anesthesia Anesthesia Type: Labor Epidural Risk / Benefits Reviewed With: PT / POA / Parent / Guardian, Accepts Plan and Informed Consent Obtained History Height/Weight Height: 5 ft 5 in Weight: 109.316 kg Allergies Allergy/AdvReac Type Severity Reaction Status Date / Time house dust mite Allergy Unknown Congested Verified 08/03/22 21:05 Medications Home Medications Medication Instructions Recorded Confirmed Last Taken aspirin 81 mg chewable tablet 81 mg PO DAILY 06/30/22 08/03/22 08/03/22 08:00 cholecalciferol (vitamin D3) 50 50 mcg PO DAILY 06/30/22 08/03/22 08/03/22 08:00 mcg (2,000 unit) tablet (Vitamin D3) cyanocobalamin (vitamin B-12) 500 500 mcg PO DAILY 06/30/22 08/03/22 08/03/22 08:00 mcg tablet (Vitamin B-12) docusate sodium 250 mg capsule 250 mg PO DAILY 06/30/22 08/03/22 08/03/22 08:00 folic acid 400 mcg tablet 400 mcg PO DAILY 06/30/22 08/03/22 08/03/22 08:00 prenat.vits,tamy,jrq-acok-zhjud 1 tab PO DAILY 06/30/22 08/03/22 08/03/22 08:00 pyridoxine (vitamin B6) 25 mg 25 mg PO DAILY 06/30/22 08/03/22 08/03/22 08:00 tablet (Vitamin B-6) iron sucrose 100 mg iron/5 mL 300 mg (15 mL) IV ONCE 1 day #15 mL 07/03/2208/0307/09/22 intravenous solution (Venofer) ferrous sulfate 325 mg (65 mg 325 mg PO DAILY 07/09/22 08/03/22 08/03/22 08:00 iron) tablet Active Medications Generic Name Dose Route Start Last Admin Trade Name Freq PRN Reason Stop Dose Admin Calcium Carbonate 1,500 mg 08/03/22 22:05 08/04/22 02:39 Calcium Carbonate 500 Mg Chewable Tab PO 09/02/22 22:04 1,500 mg Q4H PRN Administration Indigestion Famotidine 20 mg 08/04/22 05:28 08/04/22 05:36 Famotidine 20 Mg Tab PO 09/03/22 05:27 20 mg BID ALCIDES Administration Lactated Ringer's 1,000 mls @ 125 mls/hr 08/03/22 21:48 08/04/22 05:43 Lr IV 08/05/22 21:47 75 mls/hr .Q8H PRN Administration L&D Protocol Protocol Oxytocin 30 units in 500 mls @ 4 mls/hr 08/03/22 21:51 08/04/22 02:37 Pitocin IV 08/05/22 21:50 0.24 units/hr .Q24H PRN 4 mls/hr Labor Induction/Augmentation Titration Protocol 0.24 UNITS/HR Magnesium Sulfate 40 gm in 1,000 mls @ 50 mls/hr 08/04/22 05:30 08/04/22 05:37 Magnesium Sulfate / Wtr IV 09/03/22 05:29 8 gm/hr .Q20H ALCIDES 200 mls/hr Administration 2 GM/HR NPO Date Last Intake of Fluids: 08/04/22 Time Last Intake of Fluids: 05:00 Date Last Intake of Solids: 08/03/22 Time Last Intake of Solids: 20:00 Past Medical History Medical History No known health problems Exercise / Class Metabolic Activity II 4-5 Yardwork/Stairs/Walk up hill Past Family History Family History Grandmother Diabetes Father Diabetes Grandfather (Maternal) Heart disease Aunt Breast cancer Mother Cancer Other Hodgkin lymphoma No known health problems Past Surgical History Surgical History H/O dilation and curettage 2019 retained placenta after delivery H/O wisdom tooth extraction [place] teeth extracted Past Anesthesia History No Hx of Anesthesia Complications and No Family Hx of Anesthesia Complications History of PONV No Hx of PONV and No Hx of Motion Sickness Social History Smoking Status: Never smoker Hx Alcohol Use: No Hx Substance Use: No substance use type: does not use Physical Exam Vital Signs Last Vital Signs Temp 36.7 C 08/04/22 05:29 Pulse 91 H 08/04/22 05:35 Resp 20 08/04/22 05:29 BP 171/106 H 08/04/22 05:18 Pulse Ox 99 08/04/22 05:35 O2 Del Method Room Air 08/03/22 21:07 ENMT Mouth: no TMJ abnormality Thyromental Distance: > or= 3.5 Finger Breadths Mallampati Class: III Neck normal visual inspection and trachea midline; neck extension not limited Respiratory normal respiratory effort Auscultation: lungs clear to auscultation bilaterally Cardiovascular Rate/Rhythm: regular rate and regular rhythm Heart Sounds: no murmur Musculoskeletal Spine: normal cervical ROM Extremities: full ROM of extremities Neurologic moves all extremities Psychiatric Orientation: alert and oriented x 3 Testing Laboratory Results 08/03/22 22:18 08/03/22 22:18 Blood Type O Positive 08/03/22 22:18 Antibody Screen NEGATIVE 08/03/22 22:18
[2022-08-04] MEDS ORDERED: NALBUPHINE HCL INJ 10 MG/ML AMP IV PRN ×2 (06:08→11:22)
[2022-08-04] MEDS ORDERED: ONDANSETRON INJ 2 MG/ML 2 ML VIAL IV PRN ×2 (06:08→11:22)
[2022-08-04] MEDS ORDERED: diphenhydrAMINE 50 MG/ML VIAL IV PRN ×2 (06:08→11:22)
[2022-08-04] MEDS ORDERED: NALOXONE HCL 0.4 MG/1 ML VIAL/CARP IV PRN ×2 (06:08→11:22)
[2022-08-04] MEDS ORDERED: fentaNYL 2MCG/ML ROPIVACAINE 1.25MG/ML 100 ML BAG EPI PRN ×2 (06:08→11:22)
[2022-08-04] MEDS ORDERED: NALOXONE HCL 1 MG in SODIUM CHLORIDE 0.9% 1000ML 1,000 ML IV PRN ×2 (06:08→11:22)
[2022-08-04] MEDS ORDERED: PROMETHAZINE HCL 25 MG in SODIUM CHLORIDE 0.9% 50 ML IV PRN (06:08)
[2022-08-04] MEDS ORDERED: ePHEDrine sulfate 50 MG/ML AMP IV PRN ×2 (06:08→11:22)
[2022-08-04 07:00] LABS: Basophils # (auto) 0.03 K/uL (0-0.2); Basophils % (auto) 0.3 %; Eosinophils # (auto) 0.11 K/uL (0-0.50); Eosinophils % (auto) 1.1 %; Hematocrit (blood only) 30.5 % (37.0-47.0); Hemoglobin 10.9 g/dl (12.0-16.0); Immature Granulocytes # (auto) 0.26 K/uL (0.01-0.20); Immature Granulocytes % (auto) 2.6 %; Lymphocytes # (auto) 3.06 K/uL (1.2-3.4); Lymphocytes % (auto) 30.8 %; Mean Corpuscular Hemoglobin 31.8 pg (25.0-34.0); Mean Corpuscular Hgb Conc 35.7 g/dL (32.0-36.0); Mean Corpuscular Volume 88.9 fL (80.0-100.0); Monocytes # (auto) 0.57 K/uL (0.11-0.59); Monocytes % (auto) 5.7 %; Neutrophils % (auto) 59.5 %; Platelet Count 223 K/uL (130-400); RDW Coefficient of Variation 14.4 % (11.5-14.5); Red Blood Count 3.43 M/uL (4.20-5.40); White Blood Count 9.93 K/ul (4.8-10.8)
[2022-08-04 07:13] LABS: Albumin Level 3.3 gm/dl (3.4-5.0); BUN Creatinine Ratio 13.4 (10-20); Bilirubin,Total 0.3 mg/dl (0.2-1.0); Calcium 9.9 mg/dl (8.5-10.1); Creatinine Clr Calc Pharmacy 118.9 ml/min; Est GFR (African American) 108.2 ml/min; Est GFR (Non-African American) 93.4 ml/min; Globulin 3.2 gm/dl (2.5-4.0); Potassium 3.7 mmol/L (3.5-5.1); Total Protein 6.5 gm/dl (6.0-8.3)
[2022-08-04] MEDS ORDERED: LABETALOL HCL IV 5 MG/ML 20ML IV STA (08:49)
--- NOTE | 2022-08-04 08:49 | Obstetrical Progress Note ---
Date of Service August 04, 2022 Assessment & Plan (1) Twin : (2) Preeclampsia: Plan arom of baby a--clear. fetus category 1 x 2. Continue pitocin. labs this am were wnl. BPS are still very labile, but only a few are in the severe range until recently with movement/arom . Patient notes she is very anxious as well, which I am sure is contributing. Will treat with labetalol. Admission and Anticipated Discharge Date Admission Date: August 03, 2022 Subjective Patient is comfortable with epidural. She notes no s/s of pet Physical Exam Physical Exam: cx--4-5/75/-2 toco--q3-5, pit at 10 efm a--125 with mod variability, accels to 170s, no decels efm b--120s with mod varibility, accels to 150s, no decels Results & Data ([facility]) Vital Signs (Past 12 Hours) Vital Signs Temp Pulse Resp BP Pulse Ox O2 Del Method 08/04/22 07:30 36.6 C 18 08/04/22 07:30 18 08/04/22 07:30 Room Air 08/04/22 06:30 16 08/04/22 05:37 18 08/03/22 21:07 36.9 C 100 H 18 156/98 H Room Air 08/04/22 08:40 107 H 97 08/04/22 08:39 113 H 183/103 H 08/04/22 08:35 92 H 96 08/04/22 08:36 91 H 93 08/04/22 08:33 89 157/86 H 08/04/22 08:30 94 H 93 08/04/22 08:29 98 H 92 08/04/22 08:25 87 97 08/04/22 08:23 91 H 162/83 H 08/04/22 08:20 90 96 08/04/22 08:15 91 H 96 08/04/22 08:14 93 H 93 08/04/22 08:10 88 99 08/04/22 08:07 84 150/89 H 08/04/22 08:05 86 100 08/04/22 08:03 89 93 08/04/22 08:00 93 H 18 98 08/04/22 07:57 99 H 92 08/04/22 07:55 94 H 94 08/04/22 07:52 77 08/04/22 07:52 87 144/84 H 94 08/04/22 07:50 82 95 08/04/22 07:45 78 95 08/04/22 07:43 89 94 08/04/22 07:40 80 97 08/04/22 07:38 81 153/84 H 08/04/22 07:36 80 91 08/04/22 07:35 81 98 08/04/22 07:30 86 98 08/04/22 07:25 87 100 08/04/22 07:23 84 150/91 H 08/04/22 07:20 84 98 08/04/22 07:17 80 147/87 H 08/04/22 07:15 92 H 100 08/04/22 07:10 85 148/91 H 99 08/04/22 07:05 88 99 08/04/22 07:01 75 93 08/04/22 07:00 78 98 08/04/22 06:55 96 08/04/22 06:55 82 08/04/22 06:55 84 94 08/04/22 06:53 81 137/78 08/04/22 06:50 84 97 08/04/22 06:46 87 93 08/04/22 06:45 80 16 94 08/04/22 06:40 86 93 08/04/22 06:38 80 145/84 H 08/04/22 06:35 92 H 97 08/04/22 06:30 83 96 08/04/22 06:25 83 97 08/04/22 06:22 87 16 138/84 08/04/22 06:20 101 H 97 08/04/22 06:18 83 18 151/91 H 08/04/22 06:15 90 18 98 08/04/22 06:11 91 H 18 140/84 08/04/22 06:10 91 H 97 08/04/22 06:09 90 20 137/83 08/04/22 06:07 84 18 141/86 H 08/04/22 06:05 101 H 18 131/85 98 08/04/22 06:03 108 H 20 138/86 08/04/22 06:00 101 H 98 08/04/22 05:55 99 H 97 08/04/22 05:50 105 H 98 08/04/22 05:45 90 99 08/04/22 05:40 85 98 08/04/22 05:35 91 H 99 08/04/22 05:29 20 08/04/22 05:29 36.7 C 20 08/04/22 05:30 87 99 08/04/22 05:18 97 H 171/106 H 08/04/22 04:51 85 152/74 H 08/04/22 04:44 91 H 170/96 H 08/04/22 04:30 16 08/04/22 04:30 16 08/04/22 04:27 79 166/90 H 08/04/22 04:11 90 176/92 H 08/04/22 03:10 92 H 154/76 H 08/04/22 03:08 93 H 177/78 H 08/04/22 03:06 91 H 179/92 H 08/04/22 03:01 96 H 173/95 H 08/04/22 01:50 85 132/76 08/04/22 01:43 95 H 160/91 H 08/04/22 01:19 18 08/04/22 01:19 36.8 C 18 08/04/22 01:18 92 H 151/96 H 08/04/22 01:15 96 H 140/101 H 08/03/22 23:14 101 H 08/03/22 23:14 142/70 H 08/03/22 23:05 98 H 08/03/22 23:05 162/97 H 08/03/22 21:15 100 H 08/03/22 21:15 156/98 H 08/03/22 20:59 36.9 C 105 H 18 169/107 H PG Care Time/CCT Total # of Minutes Spent Total Time Spent with Patient: Total time spent is greater than 50% in coordination of care (as documented) at patient's floor/unit and/or counseling patient: Coding Level of Care Code None Diagnoses Twin O30.009 Preeclampsia O14.90
[2022-08-04] MEDS ORDERED: FAMOTIDINE 20 MG TAB PO SCH (09:00)
--- NOTE | 2022-08-04 10:01 | Labor Progress Brief Note ---
Date of Service August 04, 2022 Subjective Getting uncomfortable wtih contractions Assessment & Plan (1) Twin : Plan continue current plan. Redose epidural. fetus reassuring x 2. Admission and Anticipated Discharge Date Admission Date: August 03, 2022 Physical Exam Physical Exam: cx--essentially unchanged--/-2 toco--q3-5min efm--reactive nst x 2, category 1 fetus x 2 Results & Data ([facility]) Vital Signs (Past 12 Hours) Vital Signs Temp Pulse Resp BP Pulse Ox O2 Del Method 08/04/22 08:30 18 08/04/22 07:30 36.6 C 18 08/04/22 07:30 18 08/04/22 07:30 Room Air 08/04/22 06:30 16 08/04/22 05:37 18 08/04/22 09:55 96 H 97 08/04/22 09:53 96 H 93 08/04/22 09:50 97 H 97 08/04/22 09:47 93 H 166/86 H 08/04/22 09:45 99 H 100 08/04/22 09:40 101 H 97 08/04/22 09:35 88 96 08/04/22 09:33 92 H 153/84 H 08/04/22 09:30 94 H 20 97 08/04/22 09:29 91 H 164/94 H 08/04/22 09:25 89 99 08/04/22 09:24 91 H 172/94 H 08/04/22 09:20 89 98 08/04/22 09:16 85 141/85 H 08/04/22 09:15 97 H 97 08/04/22 09:10 99 H 97 08/04/22 09:11 89 172/90 H 08/04/22 09:09 93 H 93 08/04/22 09:05 91 H 96 08/04/22 09:06 90 147/89 H 08/04/22 09:00 36.6 C 101 H 20 98 08/04/22 08:55 91 H 98 08/04/22 08:54 91 H 178/99 H 08/04/22 08:50 98 H 98 08/04/22 08:47 99 H 177/98 H 08/04/22 08:45 111 H 97 08/04/22 08:40 107 H 97 08/04/22 08:39 113 H 183/103 H 08/04/22 08:35 92 H 96 08/04/22 08:36 91 H 93 08/04/22 08:33 89 157/86 H 08/04/22 08:30 94 H 20 93 08/04/22 08:29 98 H 92 08/04/22 08:25 87 97 08/04/22 08:23 91 H 162/83 H 08/04/22 08:20 90 96 08/04/22 08:15 91 H 96 08/04/22 08:14 93 H 93 08/04/22 08:10 88 99 08/04/22 08:07 84 150/89 H 08/04/22 08:05 86 100 08/04/22 08:03 89 93 08/04/22 08:00 93 H 18 98 08/04/22 07:57 99 H 92 08/04/22 07:55 94 H 94 08/04/22 07:52 77 08/04/22 07:52 87 144/84 H 94 08/04/22 07:50 82 95 08/04/22 07:45 78 95 08/04/22 07:43 89 94 08/04/22 07:40 80 97 08/04/22 07:38 81 153/84 H 08/04/22 07:36 80 91 08/04/22 07:35 81 98 08/04/22 07:30 86 98 08/04/22 07:25 87 100 08/04/22 07:23 84 150/91 H 08/04/22 07:20 84 98 08/04/22 07:17 80 147/87 H 08/04/22 07:15 92 H 100 08/04/22 07:10 85 148/91 H 99 08/04/22 07:05 88 99 08/04/22 07:01 75 93 08/04/22 07:00 78 98 08/04/22 06:55 96 08/04/22 06:55 82 08/04/22 06:55 84 94 08/04/22 06:53 81 137/78 08/04/22 06:50 84 97 08/04/22 06:46 87 93 08/04/22 06:45 80 16 94 08/04/22 06:40 86 93 02/21/23 06:38 80 145/84 H 02/21/23 06:35 92 H 97 08/04/22 06:30 83 96 08/04/22 06:25 83 97 08/04/22 06:22 87 16 138/84 08/04/22 06:20 101 H 97 08/04/22 06:18 83 18 151/91 H 08/04/22 06:15 90 18 98 08/04/22 06:11 91 H 18 140/84 08/04/22 06:10 91 H 97 08/04/22 06:09 90 20 137/83 08/04/22 06:07 84 18 141/86 H 08/04/22 06:05 101 H 18 131/85 98 08/04/22 06:03 108 H 20 138/86 08/04/22 06:00 101 H 98 08/04/22 05:55 99 H 97 08/04/22 05:50 105 H 98 08/04/22 05:45 90 99 08/04/22 05:40 85 98 08/04/22 05:35 91 H 99 08/04/22 05:29 20 08/04/22 05:29 36.7 C 20 08/04/22 05:30 87 99 08/04/22 05:18 97 H 171/106 H 08/04/22 04:51 85 152/74 H 08/04/22 04:44 91 H 170/96 H 08/04/22 04:30 16 08/04/22 04:30 16 08/04/22 04:27 79 166/90 H 08/04/22 04:11 90 176/92 H 08/04/22 03:10 92 H 154/76 H 08/04/22 03:08 93 H 177/78 H 08/04/22 03:06 91 H 179/92 H 08/04/22 03:01 96 H 173/95 H 08/04/22 01:50 85 132/76 08/04/22 01:43 95 H 160/91 H 08/04/22 01:19 18 08/04/22 01:19 36.8 C 18 08/04/22 01:18 92 H 151/96 H 08/04/22 01:15 96 H 140/101 H 08/03/22 23:14 101 H 08/03/22 23:14 142/70 H 08/03/22 23:05 98 H 08/03/22 23:05 162/97 H Coding Level of Care Code None Diagnoses Twin O30.009
[2022-08-04] MEDS ORDERED: NURSING L&D Epidural Breakthrough Pain Update ONE (11:05)
--- NOTE | 2022-08-04 11:22 | Communication Note ---
Date of Service: August 04, 2022 Called by nursing staff as patient with significant pain with contractions. Had received CSE several hours earlier and had initially obtained pain relief but had worsening pain since 0900 today. Went to see patient, very hypertensive and rating contractions 10/10 in intensity. Bolused a total of 10ml of 0.25% bupivicaine with no change in pain relief. Also had no discernable change to ice bilaterally even after bolus. Concerned that patient received relief from SAB portion of CSE but now epidural tubing not in correct space. After discussion with patient, decided to remove epidural and replace. This was done (see chart for details) and I did a straight epidural with a bolus of 10ml of 0.25% bupivicaine with 100mcg fentanyl. Pain much improved and BP normalized. VSS and no apparent complications.
[2022-08-04] MEDS ORDERED: BENZOCAINE 20% AER SPR 82.5 GM CAN EXT PRN (14:09)
[2022-08-04] MEDS ORDERED: bisacodyL 10 MG SUPP PR PRN (14:09)
[2022-08-04] MEDS ORDERED: HYDROCORTISONE ACETATE 25 MG SUPP PR PRN (14:09)
[2022-08-04] MEDS ORDERED: OXYTOCIN 30 UNITS/500 ML BAG IV PRN (14:09)
[2022-08-04] MEDS ORDERED: DIPHTHERIA/TETANUS/PERTUSSIS 0.5mL SYR/VIAL (Age 7+yrs) IM ONE (14:09)
[2022-08-04] MEDS ORDERED: miSOPROStoL 200 MCG TAB PR ONE (15:20)
--- NOTE | 2022-08-04 15:45 | Anesthesia Procedure Note ---
Date of Service August 04, 2022 Anesthesia Post Epidural Note Vital Signs Vital Signs: Temp Pulse Resp BP Pulse Ox O2 Del Method 36.8 C 105 H 18 131/59 L 98 Room Air 08/04/22 14:30 08/04/22 14:07 08/04/22 15:00 08/04/22 13:58 08/04/22 14:07 08/04/22 07:30 Pain Intensity Abdomen: Pain Intensity: 8 Notes Mental Status: alert / awake / arousable and participated in evaluation Patient Amnestic to Procedure: No Nausea / Vomiting: adequately controlled Pain: adequately controlled Airway Patency, RR, SpO2: stable & adequate BP & HR: stable & adequate Hydration State: stable & adequate Neuraxial Anesthesia: was administered and sensory block is resolving Anesthetic Complications: no major complications apparent and Pt Satisfied with anesthetic care Epidural: Removed without complications and With tip intact
[2022-08-04] MEDS ORDERED: Nursing to Pharmacy Communication SCH (16:30)
[2022-08-04] MEDS: LABETALOL HCL 100 MG TAB PO SCH ×2 (16:50→21:15)
[2022-08-04] MEDS: IBUPROFEN 600 MG TAB PO PRN ×2 (17:03→21:23)
[2022-08-04] MEDS: ACETAMINOPHEN 325 MG TAB PO PRN (19:30)
[2022-08-04] MEDS ORDERED: LABETALOL HCL 100 MG TAB PO SCH (21:00)
[2022-08-04] MEDS: DOCUSATE SODIUM 100 MG CAP PO SCH (21:19)
[2022-08-05] MEDS: MAGNESIUM SULFATE / WTR 40 GM/1,000 ML BAG IV SCH (00:14)
[2022-08-05] MEDS: IBUPROFEN 600 MG TAB PO PRN ×4 (01:36→19:38)
[2022-08-05] MEDS: ACETAMINOPHEN 325 MG TAB PO PRN ×2 (03:55→10:01)
--- NOTE | 2022-08-05 05:56 | Obstetrical Progress Note ---
Date of Service August 05, 2022 Assessment & Plan (1) care following vaginal delivery: (2) Twin : (3) Preeclampsia: Plan - Overall, feeling well and looking forward to advancing diet - Infant feeding going well without concern - Urinating via Monson and passing gas appropriately - Not yet ambulating - Pain controlled w/ Ibuprofen/Tylenol - Hgb 10.9 on 08/04 - Pre-eclampsia: BP remains elevated (primarily 140s/90s), trending down, change Labetalol to 100 BID, continue Mg - Abdominal Protrusion: soft, reducible, likely hernia, non-incarcerated, continue to follow - Continue to progress routine PP care - Anticipate discharge @ 48-72 hours PP - Recommending f/u outpatient in 6 weeks Admission and Anticipated Discharge Date Admission Date: August 03, 2022 Supervising Physician Co-Signing Physician Notes Resident Physician Supervision Note: I interviewed and examined the patient. Discussed with Dr. Lou and agree with findings and plan as documented in the note. Any exceptions or clarifications are listed here: Overall doing well. Blood pressures continue to be a little labile but not nearly as severe as before delivery. Gave 200mg of labetalol yesterday but pressures better since giving that so plan to decrease to 100mg bid. She has a bulge in her abd to the left above the umbilicus. this is nontender, mobile soft. Suspect bowel that is pushing into a very distended thin abd wall. Will monitor. Is starting to pass gas. Plan d/c mag at 2pm today. cbc is wnl. excellent uop. Documented By: Atiya Ramachandran MD, FACOG Subjective Patient is a 36F who is PPD #1 following twin delivery at 37 5/7. She reports feeling well overall this morning. - Ambulation - not yet OOB - Voiding/Monson - Monson intact, no dysuria or pressure - Gas/Stool - passing gas, no bowel movement - Diet - held, no nausea or emesis - Lochia - diminishing, light amount - Feeding Type - breast feeding - Pain Level - 2/10, controlled with Ibuprofen Review of Systems - Denies fever, chills, sweats - Denies shortness of breath, difficulty breathing, chest pain, palpitations, chest pressure. - Denies breast pain. - Denies dysuria. - Denies headache or changes in vision. Physical Exam Physical Exam: General: Alert, oriented. No acute distress. Cardiac: RRR, normal S1/S2, no murmurs/rubs/gallops. Respiratory: Non-labored, CTAB, no wheezes/rales/rhonchi. Symmetric chest rise. Abdomen: Soft, nontender, nondistended. Bowel sounds present. 3 inch, non-tender protrusion to right of umbilicus/ Uterus: Uterine fundus firm, palpable 1 cm below umbilicus. Lower Extremities: No lower extremity edema or swelling. No deep calf pain. Kailey's negative bilaterally. Results & Data ([facility]) Vital Signs (Past 12 Hours) Vital Signs Temp Pulse Resp BP Pulse Ox O2 Del Method 08/05/22 04:30 18 08/05/22 03:30 36.5 C 18 08/05/22 03:30 18 08/05/22 02:30 16 08/05/22 01:30 16 08/05/22 00:35 16 08/04/22 23:30 18 08/04/22 22:30 20 08/04/22 21:30 20 08/04/22 21:30 20 08/04/22 20:30 16 08/04/22 19:30 37.0 C 18 08/04/22 19:30 18 08/04/22 19:30 Room Air 08/04/22 18:30 16 08/05/22 05:50 86 95 08/05/22 05:46 85 93 08/05/22 05:45 86 96 08/05/22 05:40 87 96 08/05/22 05:37 86 150/82 H 08/05/22 05:35 85 97 08/05/22 05:30 85 96 08/05/22 05:28 87 94 08/05/22 05:25 83 95 08/05/22 05:22 82 94 08/05/22 05:20 82 96 08/05/22 05:15 87 98 08/05/22 05:10 85 96 08/05/22 05:05 85 96 08/05/22 05:00 88 96 08/05/22 04:55 95 H 98 08/05/22 04:50 82 96 08/05/22 04:45 83 97 08/05/22 04:40 84 97 08/05/22 04:37 78 144/91 H 08/05/22 04:35 87 98 08/05/22 04:30 89 98 08/05/22 04:25 89 97 02 04:20 91 H 98 08/05/22 04:15 91 H 99 08/05/22 04:10 86 97 08/05/22 04:05 80 98 08/05/22 04:00 86 99 08/05/22 03:55 95 H 98 08/05/22 03:50 99 H 98 08/05/22 03:45 84 97 08/05/22 03:40 83 100 08/05/22 03:37 83 129/80 08/05/22 03:35 85 98 08/05/22 03:30 83 99 08/05/22 03:25 88 95 08/05/22 03:26 88 93 08/05/22 03:20 89 93 08/05/22 03:17 90 92 08/05/22 03:15 84 98 08/05/22 03:12 88 94 08/05/22 03:10 83 95 08/05/22 03:06 81 94 08/05/22 03:05 84 94 08/05/22 03:00 82 98 08/05/22 02:57 84 93 08/05/22 02:55 80 97 08/05/22 02:52 83 93 08/05/22 02:50 82 96 08/05/22 02:47 91 H 92 08/05/22 02:45 81 96 08/05/22 02:40 81 94 08/05/22 02:37 79 131/70 08/05/22 02:35 82 97 08/05/22 02:30 82 95 08/05/22 02:25 84 97 08/05/22 02:20 96 08/05/22 02:20 86 08/05/22 02:20 84 94 08/05/22 02:15 99 08/05/22 02:15 92 H 08/05/22 02:15 92 H 94 08/05/22 02:10 85 96 08/05/22 02:05 85 96 08/05/22 02:03 87 93 08/05/22 02:00 84 96 08/05/22 01:58 88 93 08/05/22 01:55 81 98 08/05/22 01:50 93 H 96 08/05/22 01:45 86 98 08/05/22 01:43 93 H 91 08/05/22 01:40 82 98 08/05/22 01:35 79 98 08/05/22 01:36 77 139/87 08/05/22 01:30 78 100 08/05/22 01:25 86 100 08/05/22 01:23 78 164/98 H 08/05/22 01:20 84 100 08/05/22 01:15 79 100 08/05/22 01:10 80 100 08/05/22 01:05 84 99 08/05/22 01:04 89 144/95 H 08/05/22 01:00 86 99 08/05/22 00:55 82 100 08/05/22 00:50 93 H 99 08/05/22 00:45 86 98 08/05/22 00:40 84 99 08/05/22 00:35 90 99 08/05/22 00:30 90 99 08/05/22 00:25 89 98 08/05/22 00:20 86 98 08/05/22 00:15 80 96 08/05/22 00:10 82 97 08/05/22 00:05 81 95 08/05/22 00:04 80 134/70 08/05/22 00:00 81 95 08/04/22 23:55 80 95 08/04/22 23:50 84 96 08/04/22 23:45 85 100 08/04/22 23:40 88 98 08/04/22 23:35 89 99 08/04/22 23:30 36.7 C 85 18 98 08/04/22 23:25 86 98 02 23:20 90 99 08/04/22 23:15 101 H 98 08/04/22 23:10 86 95 02 23:05 82 98 02 23:04 82 138/75 02 23:00 85 97 02 22:55 85 98 02 22:50 87 98 0223 22:45 88 97 02 22:40 98 H 96 02 22:35 86 97 02 22:30 94 H 98 02 22:25 90 99 02 22:20 93 H 98 02/21/23 22:15 92 H 98 08/04/22 22:10 91 H 97 02 22:05 95 H 98 02 22:04 93 H 137/84 02 22:00 93 H 98 02 21:55 93 H 98 08/04/22 21:50 92 H 98 08/04/22 21:45 92 H 97 02 21:40 92 H 97 08/04/22 21:35 89 99 02 21:30 94 H 99 08/04/22 21:25 92 H 97 08/04/22 21:20 99 H 98 08/04/22 21:18 102 H 139/78 08/04/22 21:15 89 95 02 21:10 92 H 94 08/04/22 21:05 87 97 08/04/22 21:04 87 151/79 H 08/04/22 21:00 89 96 08/04/22 20:55 90 96 08/04/22 20:50 86 95 08/04/22 20:45 87 94 08/04/22 20:40 92 H 97 08/04/22 20:35 88 94 08/04/22 20:30 89 93 08/04/22 20:25 90 94 08/04/22 20:20 91 H 95 08/04/22 20:15 92 H 93 08/04/22 20:10 93 H 94 08/04/22 20:05 92 H 92 08/04/22 20:04 97 H 132/73 08/04/22 20:00 95 H 95 08/04/22 19:55 102 H 97 08/04/22 19:50 99 H 95 08/04/22 19:45 98 H 96 08/04/22 19:40 97 H 95 08/04/22 19:35 95 H 99 02 19:30 98 H 98 08/04/22 19:25 92 H 97 08/04/22 19:20 96 H 98 08/04/22 19:15 95 H 98 08/04/22 19:10 98 H 98 08/04/22 19:05 96 H 97 02 19:04 98 H 131/61 08/04/22 19:00 96 H 98 08/04/22 18:55 98 H 97 08/04/22 18:50 95 H 98 08/04/22 18:49 96 H 135/63 08/04/22 18:45 97 H 98 08/04/22 18:40 96 H 97 08/04/22 18:35 98 H 98 08/04/22 18:34 96 H 135/63 08/04/22 18:30 97 H 98 08/04/22 18:25 97 H 97 08/04/22 18:20 95 H 98 08/04/22 18:19 92 H 123/59 L 08/04/22 18:15 97 H 98 08/04/22 18:10 100 H 98 08/04/22 18:05 97 H 97 08/04/22 18:04 94 H 123/56 L 08/04/22 18:00 93 H 95 08/04/22 17:55 96 H 98 Resident Activity Tracking Resident Involvement: Resident Care Provided Care Provided: OB Delivery
[2022-08-05 07:06] LABS: Hematocrit (blood only) 28.9 % (37.0-47.0); Hemoglobin 10.4 g/dl (12.0-16.0); Mean Corpuscular Hemoglobin 31.4 pg (25.0-34.0); Mean Corpuscular Volume 87.3 fL (80.0-100.0); Mean Platelet Volume 10.1 fL (9.4-12.4); Platelet Count 201 K/uL (130-400); RDW Coefficient of Variation 14.1 % (11.5-14.5); RDW Standard Deviation 44.5 fL (36.4-46.3); Red Blood Count 3.31 M/uL (4.20-5.40); White Blood Count 11.17 K/ul (4.8-10.8)
[2022-08-05] MEDS: DOCUSATE SODIUM 100 MG CAP PO SCH ×2 (08:07→19:38)
[2022-08-05] MEDS: FERROUS SULFATE 325 MG TAB PO SCH (08:07)
[2022-08-05] MEDS: PRENATAL VITAMIN 1 TAB PO SCH (08:07)
[2022-08-05] MEDS: SIMETHICONE 80 MG CHEW PO PRN (08:07)
[2022-08-05] MEDS: LACTATED RINGER'S 1,000 ML IV PRN (08:20)
[2022-08-05] MEDS: LABETALOL HCL 100 MG TAB PO SCH ×2 (09:05→20:49)
[2022-08-05] MEDS: FAMOTIDINE 20 MG TAB PO SCH ×3 (09:06→19:40)
--- NOTE | 2022-08-05 18:57 | Operative Report (OR) ---
DATE OF SERVICE: 08/04/2022. PROCEDURE: Normal spontaneous vaginal delivery of twins, second-degree perineal laceration repair. SURGEON: Mo Trotter MD. PREOPERATIVE DIAGNOSES: 1. Di-di twin intrauterine . 2. Severe preeclampsia. POSTOPERATIVE DIAGNOSES: 1. Di-di twin intrauterine . 2. Severe preeclampsia, status post procedure. FINDINGS: Two viable male twins with weight and Apgars pending. DESCRIPTION OF PROCEDURE: The patient was taken to the operating room after she became complete-comp lete +1 station with plan for delivery. The patient pushed for the first for approximately 3 contractions with epidural anesthesia. The head of the delivered in DOMINIK position, restitute d to left transverse. No nuchal cord was noted. Body and shoulders quickly followed and was delivered to the maternal abdomen and was noted to be vigorous. A 30-second delayed cord clamping w as initiated, after which the cord was double clamped and cut. Attention was then turned to the se[place] nd twin. The ultrasound was used to confirm that the head of the was in cephalic position, b ut was still high station. The did come down into the pelvis and when what the head was well engaged in the pelvis, the membranes were ruptured for the second twin. Cervix was noted to be stil l fully dilated and the patient pushed over approximately 4 to 6 contractions to achieve delivery of the second twin. The head of the second twin delivered in ASA position and restituted to right trans verse. No nuchal cord was noted. Body and shoulders did quickly followed. Second was also noted to be vigorous upon delivery and 1 minute delayed cord clamping was initiated. Cord was then d ouble clamped and cut. remained on the maternal abdomen. Cord blood was obtained from both cords and attention was then turned to delivery of the placenta. The placentas were both delivered i ntact with a 3-vessel cords x2 with gentle traction. On inspection of the perineum, vagina, and cerv ix, there was noted to be a small second-degree perineal laceration, which was repaired with 3-0 Vicr yl in a traditional crown stitch. Needle, sponge, and instrument counts were correct. After complet ion of the case, both mother and neonates were stable in the immediate post-delivery period. Job ID: [id number]
[2022-08-05] MEDS ORDERED: bisacodyL 5 MG TABEC PO SCH (20:00)
[2022-08-06] MEDS: IBUPROFEN 600 MG TAB PO PRN (02:15)
[2022-08-06 06:18] LABS: Hematocrit (blood only) 28.1 % (37.0-47.0); Hemoglobin 9.8 g/dl (12.0-16.0)
--- NOTE | 2022-08-06 06:40 | Obstetrical Progress Note ---
Date of Service August 06, 2022 Assessment & Plan (1) care following vaginal delivery: (2) Twin : (3) Preeclampsia: Plan - Overall, feeling well and eating well - feeding going well without concern - Urinating independently and passing gas appropriately - Ambulating well - Pain controlled w/ Ibuprofen/Tylenol - Hgb 10.9 on 08/04, 9.8 on 08/06 - Pre-eclampsia: BP downtrending (primarily 130s/80s, occasional 140/90 w/ ambulation), on Labetalol to 100 BID, d/c continue Mg - Abdominal Protrusion: resolved, suspect hernia vs distended bowel loops - Continue to progress routine PP care - Anticipate discharge @ 48-72 hours PP - Recommending f/u outpatient in 6 weeks w/ BP check Admission and Anticipated Discharge Date Admission Date: August 03, 2022 Supervising Physician Co-Signing Physician Notes patient seen with resident and agree with the above findings and plan. Will tentatively plan for discharge later today pending well managed blood pressures throughout today. Subjective Patient is a 36F who is PPD #2 following twin delivery at 37 5/7. She reports feeling well overall this morning. - Ambulation - ambulating well w/o difficulty - Voiding/Monson - independent voids, no dysuria or pressure - Gas/Stool - passing gas, no bowel movement - Diet - regular, no nausea or emesis - Lochia - diminishing, light amount - Feeding Type - breast feeding and pumping (tandem feeding) - Pain Level - 2/10, controlled with Ibuprofen/Tylenol Review of Systems - Denies fever, chills, sweats - Denies shortness of breath, difficulty breathing, chest pain, palpitations, chest pressure. - Denies breast pain. - Denies dysuria. - Denies headache or changes in vision. Physical Exam Physical Exam: General: Alert, oriented. No acute distress. Cardiac: RRR, normal S1/S2, no murmurs/rubs/gallops. Respiratory: Non-labored, CTAB, no wheezes/rales/rhonchi. Symmetric chest rise. Abdomen: Soft, nontender, nondistended. Bowel sounds present. Resolved abdominal protrusion. Uterus: Uterine fundus firm, palpable 1 cm below umbilicus. Lower Extremities: No lower extremity edema or swelling. No deep calf pain. Kailey's negative bilaterally. Results & Data ([facility]) Vital Signs (Past 12 Hours) Vital Signs Temp Pulse Resp BP Pulse Ox O2 Del Method 08/06/22 00:15 36.7 C 83 18 133/89 96 Room Air 08/05/22 19:45 Room Air 08/05/22 19:41 36.6 C 80 20 146/90 H 98 Room Air Resident Activity Tracking Resident Involvement: Resident Care Provided Care Provided: OB Delivery
[2022-08-06] MEDS: PRENATAL VITAMIN 1 TAB PO SCH (08:10)
[2022-08-06] MEDS: DOCUSATE SODIUM 100 MG CAP PO SCH ×3 (08:10→22:54)
[2022-08-06] MEDS: FERROUS SULFATE 325 MG TAB PO SCH (08:10)
[2022-08-06] MEDS: LABETALOL HCL 100 MG TAB PO SCH (08:10)
[2022-08-06] MEDS: FAMOTIDINE 20 MG TAB PO SCH ×3 (09:30→22:54)
--- NOTE | 2022-08-06 17:03 | Obstetrical Progress Note ---
Date of Service August 06, 2022 Assessment & Plan Admission and Anticipated Discharge Date Admission Date: August 03, 2022 Subjective Blood pressures have crept up with 100mg Labetalol BID. Will restart 200mg BID, will want to monitor BPs overnight to make sure patient tolerates - anticipate DC tomorrow if BPs stable. Results & Data ([facility]) Vital Signs (Past 12 Hours) Vital Signs Temp Pulse Resp BP Pulse Ox O2 Del Method 08/06/22 16:50 36.9 C 161/91 H 08/06/22 14:37 36.7 C 82 18 146/88 H 98 Room Air 08/06/22 11:35 36.7 C 85 16 155/83 H 97 Room Air 08/06/22 08:05 Room Air 08/06/22 08:05 36.7 C 85 18 144/87 H 99 Room Air PG Care Time/CCT Total # of Minutes Spent Total Time Spent with Patient: Total time spent is greater than 50% in coordination of care (as documented) at patient's floor/unit and/or counseling patient: Coding Level of Care Code None Diagnoses
[2022-08-06] MEDS: LABETALOL HCL 200 MG TAB PO SCH (21:28)
--- NOTE | 2022-08-07 06:04 | Obstetrical Progress Note ---
Date of Service August 07, 2022 Assessment & Plan (1) care following vaginal delivery: (2) Twin : (3) Preeclampsia: Plan - Overall, feeling well and eating well - feeding going well without concern - Urinating independently and passing gas appropriately - Ambulating well - Pain controlled w/ Ibuprofen/Tylenol - Hgb 10.9 on 08/04, 9.8 on 08/06 - Pre-eclampsia: BP downtrending continue Labetalol to 200 BID - Continue to progress routine PP care - Anticipate discharge @ 48-72 hours PP - Recommending f/u outpatient in 6 weeks w/ BP check Admission and Anticipated Discharge Date Admission Date: August 03, 2022 Supervising Physician Co-Signing Physician Notes Resident Physician Supervision Note: I interviewed and examined the patient. Discussed with Dr. Lou and agree with findings and plan as documented in the note. Any exceptions or clarifications are listed here: PPD#3, doing well. BP has improved with labetalol 200mg BID - will monitor BPs today and plan for DC today with 1w BP check in office. Documented By: Denia Burnette, DO Subjective Patient is a 36F who is PPD #3 following twin delivery at 37 5/7. She reports feeling well overall this morning. - Ambulation - ambulating well w/o difficulty - Voiding/Monson - independent voids, no dysuria or pressure - Gas/Stool - passing gas, no bowel movement - Diet - regular, no nausea or emesis - Lochia - diminishing, light amount - Infant Feeding Type - breast feeding and pumping (tandem feeding) - Pain Level - 2/10, controlled with Ibuprofen/Tylenol Review of Systems - Denies fever, chills, sweats - Denies shortness of breath, difficulty breathing, chest pain, palpitations, chest pressure. - Denies breast pain. - Denies dysuria. - Denies headache or changes in vision. Physical Exam Physical Exam: General: Alert, oriented. No acute distress. Cardiac: RRR, normal S1/S2, no murmurs/rubs/gallops. Respiratory: Non-labored, CTAB, no wheezes/rales/rhonchi. Symmetric chest rise. Abdomen: Soft, nontender, nondistended. Bowel sounds present. Resolved abdominal protrusion. Uterus: Uterine fundus firm, palpable 1 cm below umbilicus. Lower Extremities: No lower extremity edema or swelling. No deep calf pain. Kailey's negative bilaterally. Results & Data ([facility]) Vital Signs (Past 12 Hours) Vital Signs Temp Pulse Resp BP 08/07/22 01:51 36.6 C 94 H 18 135/83 08/06/22 22:30 37.3 C 18 08/06/22 21:30 18 145/84 H 08/06/22 20:45 18 Resident Activity Tracking Resident Involvement: Resident Care Provided Care Provided: OB Delivery
[2022-08-07] MEDS: DOCUSATE SODIUM 100 MG CAP PO SCH (09:18)
[2022-08-07] MEDS: PRENATAL VITAMIN 1 TAB PO SCH (09:18)
[2022-08-07] MEDS: FERROUS SULFATE 325 MG TAB PO SCH (09:18)
[2022-08-07] MEDS: SIMETHICONE 80 MG CHEW PO PRN (09:18)
[2022-08-07] MEDS: FAMOTIDINE 20 MG TAB PO SCH (09:22)
[2022-08-07] MEDS: LABETALOL HCL 200 MG TAB PO SCH (09:46)
[2022-08-07] MEDS: IBUPROFEN 600 MG TAB PO PRN (14:01)
== END 2022-08-07 19:45 | disposition home or self-care (01) | DRG 807 ==
LOC: 4S1 20:45 → 4E2 08-05 16:10